=== PATIENT | male | born 1950 | race Caucasian/White ===

== ENCOUNTER 2021-05-16 20:07 | Emergency (ER) | payer MEDICARE, OTHER ==
--- NOTE | 2021-05-16 21:28 | EDM.PDOC ---
ED HPI GENERAL MEDICAL PROBLEM - General Chief Complaint: Upper Extremity Injury/Pain Stated Complaint: FELL DOWN STEPS INJURING LEFT SIDE & HEAD Time Seen by Provider: 05/16/21 20:43 Source of Information: Reports: Patient, RN Notes Reviewed - History of Present Illness INITIAL COMMENTS - FREE TEXT/NARRATIVE: 70 yr old male fell, missed a step injuring L thumb, L knee and R shoulder. Hit top of head against something with abrasion injuries top of head. No LOC, no Sidhu at this time. No chest pain or difficulty breathing. Left Hand Pain Score (Numeric/FACES): 7 Left Knee Pain Score (Numeric/FACES): 7 Right Shoulder Pain Score (Numeric/FACES): 7 - Related Data Allergies Allergy/AdvReac Type Severity Reaction Status Date / Time No Known Allergies Allergy Verified 05/16/21 20:26 Past Medical History HEENT History: Reports: Impaired Vision Cardiovascular History: Reports: Hypertension Social & Family History - Tobacco Use Tobacco Use Status *Q: Former Tobacco User Used Tobacco, but Quit: Yes Month/Year Tobacco Last Used: 1989 Review of Systems - Review of Systems Review Of Systems: See Below Constitutional: Reports: No Symptoms Ears: Reports: No Symptoms Nose: Reports: No Symptoms Mouth/Throat: Reports: No Symptoms Respiratory: Denies: Shortness of Breath, Pleuritic Chest Pain Cardiovascular: Denies: Chest Pain GI/Abdominal: Denies: Abdominal Pain, Nausea, Vomiting Musculoskeletal: Reports: Shoulder Pain, Joint Pain (L knee, L thumb) Neurological: Denies: Dizziness, Headache, Trouble Speaking ED EXAM, GENERAL - Physical Exam Exam: See Below General Appearance: Alert, No Apparent Distress Head: Other (superfisical abrasion top of scalp) Neck: Supple Respiratory/Chest: No Respiratory Distress, Lungs Clear, Normal Breath Sounds, Chest Non-Tender Cardiovascular: Regular Rate, Rhythm GI/Abdominal: Non-Tender. No: Guarding Back Exam: No: Paraspinal Tenderness, Vertebral Tenderness Extremities: Other (Tender L thumb, L knee and R shoulder, no deformity) Course - Vital Signs Last Recorded V/S: Last Vital Signs Temp 98.5 F 05/16/21 20:22 Pulse 67 05/16/21 20:22 Resp 18 05/16/21 20:22 BP 159/83 H 05/16/21 20:22 Pulse Ox 97 05/16/21 20:22 - Orders/Labs/Meds Orders: Active Orders 24 hr Category Date Time Status Fingers Thumb Lt FA [CR] Stat Exams 05/16/21 20:50 Taken Knee Min 4V Lt [CR] Stat Exams 05/16/21 20:50 Taken Shoulder Comp Rt [CR] Stat Exams 05/16/21 20:51 Taken - Re-Assessments/Exams Free Text/Narrative Re-Assessment/Exam: 05/16/21 21:49 X rays no fx Departure - Departure Time of Disposition: 21:46 Disposition: Home, Self-Care 01 Condition: Fair Clinical Impression: Fall Qualifiers: Encounter type: initial encounter Qualified Code(s): W19.XXXA - Unspecified fall, initial encounter Thumb contusion Qualifiers: Encounter type: initial encounter Damage to nail status: without damage Laterality: left Qualified Code(s): S60.012A - Contusion of left thumb without damage to nail, initial encounter Contusion, knee Qualifiers: Encounter type: initial encounter Laterality: left Qualified Code(s): S80.02XA - Contusion of left knee, initial encounter Shoulder contusion Qualifiers: Encounter type: initial encounter Laterality: right Qualified Code(s): S40.011A - Contusion of right shoulder, initial encounter - Discharge Information Instructions: Contusion Referrals: Fletcher Espana MD [Primary Care Provider] - Forms: ED Department Discharge, ED Return to Work/School Form Additional Instructions: Rest, ice packs and elevation as needed for swelling, tylenol or ibuprofen as needed. Follow up clinic as needed if symptoms not resolving as expected. Sepsis Event Note (ED) - Evaluation Sepsis Screening Result: No Definite Risk - Focused Exam Vital Signs: Vital Signs Temp Pulse Resp BP Pulse Ox 05/16/21 20:22 98.5 F 67 18 159/83 H 97 - My Orders Last 24 Hours: My Active Orders 05/16/21 20:50 Fingers Thumb Lt FA [CR] Stat Knee Min 4V Lt [CR] Stat 05/16/21 20:51 Shoulder Comp Rt [CR] Stat - Assessment/Plan Last 24 Hours: My Active Orders 05/16/21 20:50 Fingers Thumb Lt FA [CR] Stat Knee Min 4V Lt [CR] Stat 05/16/21 20:51 Shoulder Comp Rt [CR] Stat
--- NOTE | 2021-05-17 06:47 | CR ---
Right shoulder: 3 views of the right shoulder were obtained. Comparison: No prior right shoulder study is available. Inferior spurring is seen within the acromioclavicular joint. Dystrophic calcification is noted within the superior acromioclavicular joint. Mild degenerative spurring is seen within the glenohumeral joint. No acute fracture, dislocation or other bony abnormality is appreciated. No abnormal soft tissue calcifications are seen. Impression: 1. Degenerative change as noted above. 2. Nothing acute is appreciated. Diagnostic code #2
--- NOTE | 2021-05-17 06:48 | CR ---
Left knee: 4 views of the left knee were obtained. Comparison: No previous knee study is available. Mild vascular calcification is noted. Moderate medial joint space narrowing is seen. Lateral joint space is preserved. Spurring is noted off the patella at the attachment of the quadriceps tendon and patellar ligament. No acute fracture or subluxation is seen. Impression: 1. Degenerative change as noted above. 2. Mild vascular calcification is seen. 3. No acute abnormality is appreciated. Diagnostic code #2
--- NOTE | 2021-05-17 06:50 | CR ---
Left thumb: 3 views of the left thumb were obtained. Comparison: No prior thumb or hand study is available. Mild joint space narrowing is seen within the IP joint. Osteophytes are also seen within the IP joint. Fairly severe degenerative change is also noted within the CMC joint of the thumb as well as off the distal navicular bone. No acute fracture or dislocation is seen. Impression: 1. Degenerative change within the IP joint, CMC joint and off the distal navicular bone. 2. Nothing acute is seen. Diagnostic code #2
== END 2021-05-16 21:53 | disposition home or self-care (01) ==
LOC: JD.ED 20:07
DX: S60.012A Contusion of left thumb without damage to nail, initial encounter (principal); S80.02XA Contusion of left knee, initial encounter; I10 Essential (primary) hypertension; Z87.891 Personal history of nicotine dependence; W10.9XXA Fall (on) (from) unspecified stairs and steps, initial encounter
CPT/HCPCS: 73030-26-RT; 73030-RT; 73140-26-FA; 73140-FA; 73564-26-LT; 73564-LT; 99283-25

== ENCOUNTER 2021-06-24 08:39 | Inpatient (IN) | payer MEDICARE, OTHER ==
[2021-06-24] MEDS ORDERED: Sodium Chloride 0.9% 10 ML Syringe FLUSH PRN ×2 (09:15→10:58)
--- NOTE | 2021-06-24 10:02 | EDM.PDOC ---
ED HPI GENERAL MEDICAL PROBLEM - General Chief Complaint: Respiratory Problem Stated Complaint: SOB Time Seen by Provider: 06/24/21 09:05 Source of Information: Reports: Patient, RN Notes Reviewed - History of Present Illness INITIAL COMMENTS - FREE TEXT/NARRATIVE: 71 yr old male had onset of mild dyspnea yesterday, became much worse this AM after awakening. Had mild disocomfort breathing, that is now gone. No cough, fever or chills. He had his 3 dose of covid vaccine just a few days ago. Hx of Htn. Does not smoke. No known hx of cardiac or pulmonary problems. 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 Due for PET scan in a couple of wks. - Related Data Allergies Allergy/AdvReac Type Severity Reaction Status Date / Time No Known Allergies Allergy Verified 06/24/21 08:56 Past Medical History HEENT History: Reports: Impaired Vision Cardiovascular History: Reports: Hypertension Oncologic (Cancer) History: Reports: Other (See Below) Other Oncologic History: plasmocytoma (diagnosed May 2020) Social & Family History - Tobacco Use Tobacco Use Status *Q: Never Tobacco User - Recreational Drug Use Recreational Drug Use: No ED ROS GENERAL - Review of Systems Review Of Systems: See Below Constitutional: Denies: Fever, Chills, Diaphoresis HEENT: Reports: No Symptoms Respiratory: Reports: Shortness of Breath, Pleuritic Chest Pain. Denies: Cough Cardiovascular: Reports: Chest Pain (gone) GI/Abdominal: Denies: Abdominal Pain, Nausea, Vomiting Musculoskeletal: Denies: Shoulder Pain, Arm Pain, Back Pain Skin: Reports: No Symptoms Neurological: Reports: Dizziness ED EXAM, GENERAL - Physical Exam Exam: See Below General Appearance: Alert, Mild Distress (mild dyspnea) Throat/Mouth: Normal Inspection Head: Atraumatic Neck: Supple Respiratory/Chest: Lungs Clear, Respiratory Distress (mild tachypnea). No: Rales, Rhonchi, Wheezing Cardiovascular: Regular Rate, Rhythm GI/Abdominal: Non-Tender Extremities: No: Leg Pain, Increased Warmth, Redness Neurological: Alert, Oriented, No Motor/Sensory Deficits Skin Exam: Warm, Dry, Normal Color #1 Interpretation EKG Date: 06/24/21 Rhythm: NSR P-Wave: Present QRS: Normal ST-T: Normal QT: Normal Course - Vital Signs Last Recorded V/S: Last Vital Signs Temp 97 F 06/24/21 08:51 Pulse 80 06/24/21 08:51 Resp 18 06/24/21 08:51 BP 136/93 H 06/24/21 08:51 Pulse Ox 85 L 06/24/21 08:51 - Orders/Labs/Meds Orders: Active Orders 24 hr Category Date Time Status Peripheral IV Care [RC] . DIRECTED Care 06/24/21 09:16 Active Heparin Sodium/D5W [Heparin 25,000 Units in D5W 500 ML] Med 06/24/21 12:15 Active 25,000 units in 500 ml IV TITRATE Sodium Chloride 0.9% [Normal Saline] 100 ml Med 06/24/21 11:00 Active IV ASDIRECTED Sodium Chloride 0.9% [Saline Flush] Med 06/24/21 09:15 Active 10 ml FLUSH ASDIRECTED PRN Sodium Chloride 0.9% [Saline Flush] Med 06/24/21 10:58 Active 10 ml FLUSH ONETIME PRN Peripheral IV Insertion Adult [OM.PC] Stat Oth 06/24/21 09:15 Ordered Medication Orders Sodium Chloride (Normal Saline) 100 mls @ 75 mls/hr IV ASDIRECTED AYDE Last Admin: 06/24/21 11:20 Dose: 75 mls/hr Documented by: BETO Heparin Sodium/Dextrose (Heparin 25,000 Units In D5w 500 Ml) 25,000 units in 500 mls @ 33.312 mls/hr IV TITRATE AYDE; Protocol Last Admin: 06/24/21 12:30 Dose: 18 units/kg/hr, 33.312 mls/hr Documented by: KRISTY Cosigned by: HANS Sodium Chloride (Sodium Chloride 0.9% 10 Ml Syringe) 10 ml FLUSH ASDIRECTED PRN PRN Reason: Keep Vein Open Last Admin: 06/24/21 09:48 Dose: 10 ml Documented by: KRISTY Sodium Chloride (Sodium Chloride 0.9% 10 Ml Syringe) 10 ml FLUSH ONETIME PRN PRN Reason: IV FLUSH Last Admin: 06/24/21 11:20 Dose: 10 ml Documented by: BETO Labs: Laboratory Tests 06/24/21 06/24/21 06/24/21 Range/Units 09:28 09:46 09:46 WBC 8.16 (4.23-9.07) K/mm3 RBC 4.65 (4.63-6.08) M/mm3 Hgb 14.4 (13.7-17.5) gm/dl Hct 42.4 (40.1-51.0) % MCV 91.2 (79.0-92.2) fl MCH 31.0 (25.7-32.2) pg MCHC 34.0 (32.2-35.5) g/dl RDW Std Deviation 43.2 (35.1-43.9) fL Plt Count 182 (163-337) K/mm3 MPV 9.2 L (9.4-12.3) fl Neut % (Auto) 88.1 H (34.0-67.9) % Lymph % (Auto) 6.0 L (21.8-53.1) % [place] % (Auto) 5.0 L (5.3-12.2) % Eos % (Auto) 0.4 L (0.8-7.0) Baso % (Auto) 0.4 (0.1-1.2) % Neut # (Auto) 7.19 H (1.78-5.38) K/mm3 Lymph # (Auto) 0.49 L (1.32-3.57) K/mm3 [place] # (Auto) 0.41 (0.30-0.82) K/mm3 Eos # (Auto) 0.03 L (0.04-0.54) K/mm3 Baso # (Auto) 0.03 (0.01-0.08) K/mm3 D-Dimer, Quantitative (0.19-0.50) mg/L Puncture Site ABG pH (7.35-7.45) ABG pCO2 (35.0-45.0) mmHg ABG pO2 (80.0-100.0) mmHg ABG HCO3 (22.0-26.0) meq/L ABG O2 Saturation (96.0-97.0) % ABG Base Excess (-2-2.0) Trevon Test A-a Gradient mmHg O2 Delivery Device FiO2 (21.00-100.00) % Sodium (136-145) mEq/L Potassium (3.5-5.1) mEq/L Chloride (98-107) mEq/L Carbon Dioxide (21-32) mEq/L Anion Gap (5-15) BUN (7-18) mg/dL Creatinine (0.7-1.3) mg/dL Est Cr Clr Drug Dosing mL/min Estimated GFR (MDRD) (>60) mL/min BUN/Creatinine Ratio (14-18) Glucose (70-99) mg/dL Calcium (8.5-10.1) mg/dL Total Bilirubin (0.2-1.0) mg/dL AST (15-37) U/L ALT (16-63) U/L Alkaline Phosphatase (46-116) U/L Troponin I (0.00-0.056) ng/mL C-Reactive Protein 4.0 H* (<1.0) mg/dL Total Protein (6.4-8.2) g/dl Albumin (3.4-5.0) g/dl Globulin gm/dL Albumin/Globulin Ratio (1-2) SARS-CoV-2 RNA (DESIRE) Negative (NEGATIVE) 06/24/21 06/24/21 06/24/21 Range/Units 09:46 09:46 09:46 WBC (4.23-9.07) K/mm3 RBC (4.63-6.08) M/mm3 Hgb (13.7-17.5) gm/dl Hct (40.1-51.0) % MCV (79.0-92.2) fl MCH (25.7-32.2) pg MCHC (32.2-35.5) g/dl RDW Std Deviation (35.1-43.9) fL Plt Count (163-337) K/mm3 MPV (9.4-12.3) fl Neut % (Auto) (34.0-67.9) % Lymph % (Auto) (21.8-53.1) % [place] % (Auto) (5.3-12.2) % Eos % (Auto) (0.8-7.0) Baso % (Auto) (0.1-1.2) % Neut # (Auto) (1.78-5.38) K/mm3 Lymph # (Auto) (1.32-3.57) K/mm3 [place] # (Auto) (0.30-0.82) K/mm3 Eos # (Auto) (0.04-0.54) K/mm3 Baso # (Auto) (0.01-0.08) K/mm3 D-Dimer, Quantitative 10.21 H (0.19-0.50) mg/L Puncture Site ABG pH (7.35-7.45) ABG pCO2 (35.0-45.0) mmHg ABG pO2 (80.0-100.0) mmHg ABG HCO3 (22.0-26.0) meq/L ABG O2 Saturation (96.0-97.0) % ABG Base Excess (-2-2.0) Trevon Test A-a Gradient mmHg O2 Delivery Device FiO2 (21.00-100.00) % Sodium 138 (136-145) mEq/L Potassium 4.0 (3.5-5.1) mEq/L Chloride 101 (98-107) mEq/L Carbon Dioxide 25 (21-32) mEq/L Anion Gap 16.0 H (5-15) BUN 16 (7-18) mg/dL Creatinine 0.9 (0.7-1.3) mg/dL Est Cr Clr Drug Dosing 79.98 mL/min Estimated GFR (MDRD) > 60 (>60) mL/min BUN/Creatinine Ratio 17.8 (14-18) Glucose 132 H (70-99) mg/dL Calcium 9.1 (8.5-10.1) mg/dL Total Bilirubin 0.7 (0.2-1.0) mg/dL AST 46 H (15-37) U/L ALT 69 H (16-63) U/L Alkaline Phosphatase 73 (46-116) U/L Troponin I 0.207 H* (0.00-0.056) ng/mL C-Reactive Protein (<1.0) mg/dL Total Protein 7.6 (6.4-8.2) g/dl Albumin 3.7 (3.4-5.0) g/dl Globulin 3.9 gm/dL Albumin/Globulin Ratio 1.0 (1-2) SARS-CoV-2 RNA (DESIRE) (NEGATIVE) 06/24/21 Range/Units 09:53 WBC (4.23-9.07) K/mm3 RBC (4.63-6.08) M/mm3 Hgb (13.7-17.5) gm/dl Hct (40.1-51.0) % MCV (79.0-92.2) fl MCH (25.7-32.2) pg MCHC (32.2-35.5) g/dl RDW Std Deviation (35.1-43.9) fL Plt Count (163-337) K/mm3 MPV (9.4-12.3) fl Neut % (Auto) (34.0-67.9) % Lymph % (Auto) (21.8-53.1) % [place] % (Auto) (5.3-12.2) % Eos % (Auto) (0.8-7.0) Baso % (Auto) (0.1-1.2) % Neut # (Auto) (1.78-5.38) K/mm3 Lymph # (Auto) (1.32-3.57) K/mm3 [place] # (Auto) (0.30-0.82) K/mm3 Eos # (Auto) (0.04-0.54) K/mm3 Baso # (Auto) (0.01-0.08) K/mm3 D-Dimer, Quantitative (0.19-0.50) mg/L Puncture Site Lt radial ABG pH 7.42 (7.35-7.45) ABG pCO2 35.3 (35.0-45.0) mmHg ABG pO2 64.0 L (80.0-100.0) mmHg ABG HCO3 22.6 (22.0-26.0) meq/L ABG O2 Saturation 92.6 L (96.0-97.0) % ABG Base Excess -0.8 (-2-2.0) Trevon Test Positive A-a Gradient 41 mmHg O2 Delivery Device Room air FiO2 21.00 (21.00-100.00) % Sodium (136-145) mEq/L Potassium (3.5-5.1) mEq/L Chloride (98-107) mEq/L Carbon Dioxide (21-32) mEq/L Anion Gap (5-15) BUN (7-18) mg/dL Creatinine (0.7-1.3) mg/dL Est Cr Clr Drug Dosing mL/min Estimated GFR (MDRD) (>60) mL/min BUN/Creatinine Ratio (14-18) Glucose (70-99) mg/dL Calcium (8.5-10.1) mg/dL Total Bilirubin (0.2-1.0) mg/dL AST (15-37) U/L ALT (16-63) U/L Alkaline Phosphatase (46-116) U/L Troponin I (0.00-0.056) ng/mL C-Reactive Protein (<1.0) mg/dL Total Protein (6.4-8.2) g/dl Albumin (3.4-5.0) g/dl Globulin gm/dL Albumin/Globulin Ratio (1-2) SARS-CoV-2 RNA (DESIRE) (NEGATIVE) Meds: Medications Generic Name Dose Route Start Last Admin Trade Name Avni PRN Reason Stop Dose Admin Sodium Chloride 100 mls @ 75 mls/hr 06/24/21 11:00 06/24/21 11:20 Normal Saline IV 75 mls/hr ASDIRECTED AYDE Administration Heparin Sodium/Dextrose 25,000 units in 500 mls @ 33.312 mls/hr 06/24/21 12:15 06/24/21 12:30 Heparin 25,000 Units In D5w 500 Ml IV 18 units/kg/hr TITRATE AYDE 33.312 mls/hr Administration Protocol 18 UNITS/KG/HR Sodium Chloride 10 ml 06/24/21 09:15 06/24/21 09:48 Sodium Chloride 0.9% 10 Ml Syringe FLUSH 10 ml ASDIRECTED PRN Administration Keep Vein Open Sodium Chloride 10 ml 06/24/21 10:58 06/24/21 11:20 Sodium Chloride 0.9% 10 Ml Syringe FLUSH 10 ml ONETIME PRN Administration IV FLUSH Discontinued Medications Generic Name Dose Route Start Last Admin Trade Name Avni PRN Reason Stop Dose Admin Heparin Sodium (Porcine) 7,000 units 06/24/21 12:14 06/24/21 12:30 Heparin Sodium 5,000 Units/Ml Vial IVPUSH 06/24/21 12:15 7,000 units .BOLUS ONE Administration Iopamidol 100 ml 06/24/21 10:58 06/24/21 11:19 Iopamidol 755 Mg/Ml 100 Ml Bottle IVPUSH 06/24/21 10:59 100 ml ONETIME ONE Administration - Re-Assessments/Exams Free Text/Narrative Re-Assessment/Exam: 06/24/21 12:25. D Dimer 10.6, have ordered CTPA. CTPA has come back show filling defects distal right and left main pul arteries. addiional segmental and subsegmental bilat defects, see Radiology report for details. There is enlargement of the R ventricle, compression of the L ventricle indicating elevated R heart pressures per Radiology report. Have bolused with 7,000 units heparin, heparin bolus running at 5,000 units per hr. Have discussed with our local Hospitalist who does recomend transfer, pt may benefit from IR. His Oncologist is Dr Seals, [facility] so will try [facility] first. 06/24/21 12:50. Trop 0.21. Other labs relatively OK. 06/24/21 14:30 Have discussed with IR specialist, Dr Garcia immigration guard for [facility]. He has reviewed the CTPA. Because his vitals have been stable and he clinically in not in distress so far he is currently classified as "submassive PE". He states treatment is what we are doing. He agrees it is OK to transfer, if he becomes unstable at least he is where IR is more readily available. One call nurse states she will have a bed, will call us back when she gets a room and Hospitalist available to talk to me about definitive transfer. Vitals have remained stable, breathing comfortably, on continued heparin drip. 06/24/21 16:30. [facility] nurse has called back. Her Hospitalist immigration guard, Dr Brothers has refused transfer. He states it is a "lateral transfer", treatment is the heparin drip that we are doing here and can do here at this time. Dr Garcia did state that the majority of patients with his current condition and findings do well and is OK for us to keep him here, transfer if he does become unstable. I have checked with [facility] and they are on diversion for admits from other hospitals at this time. I have discussed this with Dr Nova, our Hospitalist on duty. He is not comfortable admitting here because it is a 2 hr transfer if/when needed but with the current bed situation in the state, extreme difficulty of finding a bed at a higher level of care anywhere nearby he does accept patient for admission. Departure - Departure Time of Disposition: 09:59 Disposition: Home, Self-Care 01 Condition: Serious Clinical Impression: Pulmonary embolism Qualifiers: Pulmonary embolism type: unspecified Chronicity: acute Acute cor pulmonale presence: with acute cor pulmonale Qualified Code(s): I26.09 - Other pulmonary embolism with acute cor pulmonale - Discharge Information Instructions: Ankle Pain Referrals: Fletcher Espana MD [Primary Care Provider] - Forms: ED Department Discharge Sepsis Event Note (ED) - Evaluation Sepsis Screening Result: No Definite Risk - Focused Exam Vital Signs: Vital Signs Temp Pulse Resp BP Pulse Ox 06/24/21 08:51 97 F 80 18 136/93 H 85 L ED Communication - Discussed Case With (1) Discussed Case With (1): Admitting Provider (Dr Nova, decision to admit at about 16:40) - My Orders Last 24 Hours: My Active Orders 06/24/21 09:15 Sodium Chloride 0.9% [Saline Flush] 10 ml FLUSH ASDIRECTED PRN Peripheral IV Insertion Adult [OM.PC] Stat 06/24/21 09:16 Peripheral IV Care [RC] . DIRECTED 06/24/21 10:58 Sodium Chloride 0.9% [Saline Flush] 10 ml FLUSH ONETIME PRN 06/24/21 11:00 Sodium Chloride 0.9% [Normal Saline] 100 ml IV ASDIRECTED 06/24/21 12:15 Heparin Sodium/D5W [Heparin 25,000 Units in D5W 500 ML] 25,000 units in 500 ml IV TITRATE - Assessment/Plan Last 24 Hours: My Active Orders 06/24/21 09:15 Sodium Chloride 0.9% [Saline Flush] 10 ml FLUSH ASDIRECTED PRN Peripheral IV Insertion Adult [OM.PC] Stat 06/24/21 09:16 Peripheral IV Care [RC] . DIRECTED 06/24/21 10:58 Sodium Chloride 0.9% [Saline Flush] 10 ml FLUSH ONETIME PRN 06/24/21 11:00 Sodium Chloride 0.9% [Normal Saline] 100 ml IV ASDIRECTED 06/24/21 12:15 Heparin Sodium/D5W [Heparin 25,000 Units in D5W 500 ML] 25,000 units in 500 ml IV TITRATE
--- NOTE | 2021-06-24 10:14 | CR ---
Chest: Portable view of the chest was obtained. Comparison: No prior chest imaging is available. Heart size and mediastinum are within normal limits. Lungs are clear with no acute parenchymal change. Old healed rib fractures are seen anteriorly within the right chest. Degenerative endplate spurring is seen within the spine. Impression: 1. Findings which are chronic as described above. 2. Nothing acute is seen on portable chest x-ray. Diagnostic code #2
[2021-06-24] MEDS ORDERED: Iopamidol 755 Mg/ML 100 ML Bottle IVPUSH ONE (10:58)
[2021-06-24] MEDS ORDERED: Sodium Chloride 0.9% 100 ML IV SCH (11:00)
--- NOTE | 2021-06-24 11:41 | CT ---
CT chest Technique: Multiple axial sections through the chest were obtained. Intravenous contrast was utilized. Study has been performed as a pulmonary angiogram protocol. Comparison: No prior chest CT is available, prior chest x-ray performed earlier on the same day (9:25 AM). Findings: Filling defects are seen within the distal right and left main pulmonary arteries. This is compatible with pulmonary embolism. Additional pulmonary emboli extend into the segmental branches of the lingula and left lower lobe as well as into the right middle lobe and right lower lobe. Additional pulmonary emboli are seen within the subsegmental branches. Mild pulmonary emboli are seen within the segmental branches within the left upper lung. Thoracic aorta shows atherosclerotic change without aneurysm. No mediastinal adenopathy is seen. No axillary adenopathy is noted. No pericardial thickening is seen. Partially visualized atherosclerotic change is seen within the coronary arteries. Visualized upper abdominal structures show nothing acute. Lung window settings were reviewed. No acute parenchymal change is seen within either lung. Elevated right heart pressures shown by compression of the left ventricle with enlargement of the right ventricle and bowing of the intervertebral septum into the left heart. Bone window settings were reviewed which show scattered disc space narrowing and endplate spurring within the spine. No acute osseous abnormality is appreciated. Impression: 1. Severe pulmonary emboli as described above. This causes elevated right heart pressures with decreased size of the left ventricle and bowing of the intervertebral septum into the left heart. 2. Other findings which are believed to be incidental as noted above. Diagnostic code #5
[2021-06-24] MEDS ORDERED: Heparin Sodium 5,000 Units/ML Vial IVPUSH ONE (12:14)
[2021-06-24] MEDS: Heparin Sodium/D5W 25,000 UNITS/500 ML BAG IV SCH (12:30)
[2021-06-24] MEDS ORDERED: oxyCODONE 5 MG Tab PO PRN (19:33)
[2021-06-24] MEDS ORDERED: Temazepam 15 MG Cap PO PRN (19:33)
[2021-06-24] MEDS ORDERED: Ondansetron 4 MG/2 ML SDV IV PRN (19:33)
[2021-06-24] MEDS ORDERED: Acetaminophen 325 MG Tab PO PRN (19:33)
[2021-06-24] MEDS ORDERED: Albuterol 0.083% 2.5 MG/3 ML Neb Soln NEB PRN (19:33)
[2021-06-24] MEDS ORDERED: Albuterol/Ipratropium 3.0-0.5 MG/3 ML Neb Soln NEB PRN (19:33)
--- NOTE | 2021-06-24 19:56 | PCM.HP.2 ---
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 He states that for the last 5 days he has had episodes off and on of mild dyspnea, but it became progressively worse this morning. He denies any fever or chills. Denies any cough. He did have his third dose of Pfizer vaccine 5 days ago on June 19. He did take a car ride to [place] last weekend. He has never had a blood clot before. In the emergency department he was found to have, on CTA, severe pulmonary emboli. This causes elevated right heart pressures with decreased size of the left ventricle and bowing of the intravertebral septum into the left heart. Dr. Naranjo in the emergency department consulted Dr. Donte shine at [facility] in [place] in the interventional radiology department. He felt that because his vitals were stable and clinically not in distress he would classify this as a "submassive PE" and would not surgically treat this. He recommended treatment with heparin and that they would take him because if he becomes unstable INR is more available since we are 100 miles away. Unfortunately, the hospitalist on-call, Dr. Brothers, refused transfer stating it was a "lateral transfer". Patient is followed by Dr. Seals in oncology. He states that he has been getting follow-up labs every 3 months and was sent for a PET scan next week. On arrival patient's oxygen saturations were 85. He is not on oxygen at home. - Related Data Allergies/Adverse Reactions: Allergies Allergy/AdvReac Type Severity Reaction Status Date / Time No Known Allergies Allergy Verified 06/24/21 18:14 Past Medical History HEENT History: Reports: Impaired Vision Cardiovascular History: Reports: Hypertension Respiratory History: Reports: Sleep Apnea, Other (See Below) Other Respiratory History: wears CPAP at night; current PEs. Gastrointestinal History: Reports: Fatty Liver, GERD, Other (See Below) Other Gastrointestinal History: hernia Musculoskeletal History: Reports: Other (See Below) Other Musculoskeletal History: left wrist fracture, bad bilat knees, plasmacytoma of pelvis Endocrine/Metabolic History: Reports: Other (See Below) Other Endocrine/Metabolic History: prediabetic Hematologic History: Reports: B12 Deficiency, Iron Deficiency Oncologic (Cancer) History: Reports: Other (See Below) Other Oncologic History: plasmocytoma (diagnosed May 2020) - Past Surgical History HEENT Surgical History: Reports: None Cardiovascular Surgical History: Reports: None Respiratory Surgical History: Reports: None GI Surgical History: Reports: None Musculoskeletal Surgical History: Reports: Other (See Below) Other Musculoskeletal Surgeries/Procedures:: right shoulder operation Oncologic Surgical History: Reports: None Social & Family History - Family History Family Medical History: No Pertinent Family History - Tobacco Use Tobacco Use Status *Q: Former Tobacco User Used Tobacco, but Quit: Yes Month/Year Tobacco Last Used: 1985 - Caffeine Use Caffeine Use: Reports: None - Recreational Drug Use Recreational Drug Use: No H&P Review of Systems - Review of Systems: Review Of Systems: Comprehensive ROS is negative, except as noted in HPI. Exam - Exam Exam: See Below - Vital Signs Vital Signs: Last Vital Signs Temp 98.2 F 06/24/21 18:12 Pulse 80 06/24/21 18:12 Resp 20 06/24/21 18:12 BP 128/78 06/24/21 18:12 Pulse Ox 98 06/24/21 18:12 Weight: 202 lb 6.4 oz - Exam Quality Assessment: Supplemental Oxygen General: Alert, Oriented, Severe Distress HEENT: Mucosa Moist & [place] Neck: Supple, Trachea Midline, 2 Lungs: Clear to Auscultation. No: Normal Respiratory Effort (Increased respiratory rate) Cardiovascular: Regular Rate, Regular Rhythm GI/Abdominal Exam: Normal Bowel Sounds, Soft, Non-Tender, No Organomegaly, No Distention, No Abnormal Bruit, No Mass Extremities: Normal Inspection, Normal Range of Motion, Non-Tender, Normal Capillary Refill, Pedal Edema (Bilateral 1+ pedal edema which is chronic) Skin: Warm, Dry, Intact, Other (Lower extremity chronic stasis dermatitis) Neuro Extensive - Mental Status: Alert, Oriented x3, Normal Mood/Affect, Normal Cognition, Memory Intact Psychiatric: Alert, Normal Affect, Normal Mood - Patient Data Lab Results Last 24 hrs: Laboratory Results - last 24 hr 06/24/21 06/24/21 06/24/21 Range/Units 09:28 09:46 09:46 WBC 8.16 (4.23-9.07) K/mm3 RBC 4.65 (4.63-6.08) M/mm3 Hgb 14.4 (13.7-17.5) gm/dl Hct 42.4 (40.1-51.0) % MCV 91.2 (79.0-92.2) fl MCH 31.0 (25.7-32.2) pg MCHC 34.0 (32.2-35.5) g/dl RDW Std Deviation 43.2 (35.1-43.9) fL Plt Count 182 (163-337) K/mm3 MPV 9.2 L (9.4-12.3) fl Neut % (Auto) 88.1 H (34.0-67.9) % Lymph % (Auto) 6.0 L (21.8-53.1) % Anson % (Auto) 5.0 L (5.3-12.2) % Eos % (Auto) 0.4 L (0.8-7.0) Baso % (Auto) 0.4 (0.1-1.2) % Neut # (Auto) 7.19 H (1.78-5.38) K/mm3 Lymph # (Auto) 0.49 L (1.32-3.57) K/mm3 Anson # (Auto) 0.41 (0.30-0.82) K/mm3 Eos # (Auto) 0.03 L (0.04-0.54) K/mm3 Baso # (Auto) 0.03 (0.01-0.08) K/mm3 APTT (21.7-31.4) SECONDS D-Dimer, Quantitative (0.19-0.50) mg/L Puncture Site ABG pH (7.35-7.45) ABG pCO2 (35.0-45.0) mmHg ABG pO2 (80.0-100.0) mmHg ABG HCO3 (22.0-26.0) meq/L ABG O2 Saturation (96.0-97.0) % ABG Base Excess (-2-2.0) Trevon Test A-a Gradient mmHg O2 Delivery Device FiO2 (21.00-100.00) % Sodium (136-145) mEq/L Potassium (3.5-5.1) mEq/L Chloride (98-107) mEq/L Carbon Dioxide (21-32) mEq/L Anion Gap (5-15) BUN (7-18) mg/dL Creatinine (0.7-1.3) mg/dL Est Cr Clr Drug Dosing mL/min Estimated GFR (MDRD) (>60) mL/min BUN/Creatinine Ratio (14-18) Glucose (70-99) mg/dL Calcium (8.5-10.1) mg/dL Total Bilirubin (0.2-1.0) mg/dL AST (15-37) U/L ALT (16-63) U/L Alkaline Phosphatase (46-116) U/L Troponin I (0.00-0.056) ng/mL C-Reactive Protein 4.0 H* (<1.0) mg/dL Total Protein (6.4-8.2) g/dl Albumin (3.4-5.0) g/dl Globulin gm/dL Albumin/Globulin Ratio (1-2) SARS-CoV-2 RNA (DESIRE) Negative (NEGATIVE) 06/24/21 06/24/21 06/24/21 Range/Units 09:46 09:46 09:46 WBC (4.23-9.07) K/mm3 RBC (4.63-6.08) M/mm3 Hgb (13.7-17.5) gm/dl Hct (40.1-51.0) % MCV (79.0-92.2) fl MCH (25.7-32.2) pg MCHC (32.2-35.5) g/dl RDW Std Deviation (35.1-43.9) fL Plt Count (163-337) K/mm3 MPV (9.4-12.3) fl Neut % (Auto) (34.0-67.9) % Lymph % (Auto) (21.8-53.1) % Anson % (Auto) (5.3-12.2) % Eos % (Auto) (0.8-7.0) Baso % (Auto) (0.1-1.2) % Neut # (Auto) (1.78-5.38) K/mm3 Lymph # (Auto) (1.32-3.57) K/mm3 Anson # (Auto) (0.30-0.82) K/mm3 Eos # (Auto) (0.04-0.54) K/mm3 Baso # (Auto) (0.01-0.08) K/mm3 APTT (21.7-31.4) SECONDS D-Dimer, Quantitative 10.21 H (0.19-0.50) mg/L Puncture Site ABG pH (7.35-7.45) ABG pCO2 (35.0-45.0) mmHg ABG pO2 (80.0-100.0) mmHg ABG HCO3 (22.0-26.0) meq/L ABG O2 Saturation (96.0-97.0) % ABG Base Excess (-2-2.0) Trevon Test A-a Gradient mmHg O2 Delivery Device FiO2 (21.00-100.00) % Sodium 138 (136-145) mEq/L Potassium 4.0 (3.5-5.1) mEq/L Chloride 101 (98-107) mEq/L Carbon Dioxide 25 (21-32) mEq/L Anion Gap 16.0 H (5-15) BUN 16 (7-18) mg/dL Creatinine 0.9 (0.7-1.3) mg/dL Est Cr Clr Drug Dosing 79.98 mL/min Estimated GFR (MDRD) > 60 (>60) mL/min BUN/Creatinine Ratio 17.8 (14-18) Glucose 132 H (70-99) mg/dL Calcium 9.1 (8.5-10.1) mg/dL Total Bilirubin 0.7 (0.2-1.0) mg/dL AST 46 H (15-37) U/L ALT 69 H (16-63) U/L Alkaline Phosphatase 73 (46-116) U/L Troponin I 0.207 H* (0.00-0.056) ng/mL C-Reactive Protein (<1.0) mg/dL Total Protein 7.6 (6.4-8.2) g/dl Albumin 3.7 (3.4-5.0) g/dl Globulin 3.9 gm/dL Albumin/Globulin Ratio 1.0 (1-2) SARS-CoV-2 RNA (DESIRE) (NEGATIVE) 06/24/21 06/24/21 Range/Units 09:53 18:35 WBC (4.23-9.07) K/mm3 RBC (4.63-6.08) M/mm3 Hgb (13.7-17.5) gm/dl Hct (40.1-51.0) % MCV (79.0-92.2) fl MCH (25.7-32.2) pg MCHC (32.2-35.5) g/dl RDW Std Deviation (35.1-43.9) fL Plt Count (163-337) K/mm3 MPV (9.4-12.3) fl Neut % (Auto) (34.0-67.9) % Lymph % (Auto) (21.8-53.1) % Anson % (Auto) (5.3-12.2) % Eos % (Auto) (0.8-7.0) Baso % (Auto) (0.1-1.2) % Neut # (Auto) (1.78-5.38) K/mm3 Lymph # (Auto) (1.32-3.57) K/mm3 Anson # (Auto) (0.30-0.82) K/mm3 Eos # (Auto) (0.04-0.54) K/mm3 Baso # (Auto) (0.01-0.08) K/mm3 APTT 67.9 H (21.7-31.4) SECONDS D-Dimer, Quantitative (0.19-0.50) mg/L Puncture Site Lt radial ABG pH 7.42 (7.35-7.45) ABG pCO2 35.3 (35.0-45.0) mmHg ABG pO2 64.0 L (80.0-100.0) mmHg ABG HCO3 22.6 (22.0-26.0) meq/L ABG O2 Saturation 92.6 L (96.0-97.0) % ABG Base Excess -0.8 (-2-2.0) Trevon Test Positive A-a Gradient 41 mmHg O2 Delivery Device Room air FiO2 21.00 (21.00-100.00) % Sodium (136-145) mEq/L Potassium (3.5-5.1) mEq/L Chloride (98-107) mEq/L Carbon Dioxide (21-32) mEq/L Anion Gap (5-15) BUN (7-18) mg/dL Creatinine (0.7-1.3) mg/dL Est Cr Clr Drug Dosing mL/min Estimated GFR (MDRD) (>60) mL/min BUN/Creatinine Ratio (14-18) Glucose (70-99) mg/dL Calcium (8.5-10.1) mg/dL Total Bilirubin (0.2-1.0) mg/dL AST (15-37) U/L ALT (16-63) U/L Alkaline Phosphatase (46-116) U/L Troponin I (0.00-0.056) ng/mL C-Reactive Protein (<1.0) mg/dL Total Protein (6.4-8.2) g/dl Albumin (3.4-5.0) g/dl Globulin gm/dL Albumin/Globulin Ratio (1-2) SARS-CoV-2 RNA (DESIRE) (NEGATIVE) Result Diagrams: 06/24/21 09:46 06/24/21 09:46 #1 Interpretation EKG Date: 06/24/21 Rhythm: NSR Dawson: Normal P-Wave: Present QRS: Normal ST-T: Normal QT: Normal Sepsis Event Note - Evaluation Sepsis Screening Result: No Definite Risk - Focused Exam Vital Signs: Vital Signs Temp Temp Pulse Pulse Resp BP BP 06/24/21 18:12 98.2 F 80 20 128/78 06/24/21 08:51 97 F 80 18 136/93 H Pulse Ox 06/24/21 18:12 98 06/24/21 08:51 85 L *Q Meaningful Use (ADM) - VTE Risk Assess *Q Other Thrombophilia Type: current PE - Problem List (1) Plasmacytoma SNOMED Code(s): 314046436 ICD Code: C90.30 - SOLITARY PLASMACYTOMA NOT HAVING ACHIEVED REMISSION Status: Acute Current Visit: Yes (2) Pulmonary embolism SNOMED Code(s): 28295864 ICD Code: I26.99 - OTHER PULMONARY EMBOLISM WITHOUT ACUTE COR PULMONALE Status: Acute Current Visit: Yes Qualifiers: Pulmonary embolism type: unspecified Chronicity: acute Acute cor pulmonale presence: with acute cor pulmonale Qualified Code(s): I26.09 - Other pulmonary embolism with acute cor pulmonale Problem List Initiated/Reviewed/Updated: Yes Orders Last 24hrs: Active Orders 24 hr Category Date Time Status Admission Status [Patient Status] [ADT] Routine ADT 06/24/21 17:04 Active Oxygen Therapy [RC] PRN Care 06/24/21 19:33 Ordered Peripheral IV Care [RC] . DIRECTED Care 06/24/21 09:16 Active RT Aerosol Therapy [RC] ASDIRECTED Care 06/24/21 19:36 Ordered Up ad Bailey [RC] ASDIRECTED Care 06/24/21 19:33 Ordered VTE/DVT Education [RC] PER UNIT ROUTINE Care 06/24/21 19:33 Ordered Vital Signs [RC] Q4H Care 06/24/21 19:33 Ordered Regular Diet [DIET] Diet 06/24/21 Dinner Ordered CBC WITH AUTO DIFF [HEME] AM Lab 06/25/21 05:11 Ordered COMPREHENSIVE METABOLIC PN,CMP [CHEM] AM Lab 06/25/21 05:11 Ordered MAGNESIUM [CHEM] AM Lab 06/25/21 05:11 Ordered Acetaminophen [TylenoL] Med 06/24/21 19:33 Ordered 650 mg PO Q4H PRN Albuterol [Proventil Neb Soln] Med 06/24/21 19:33 Ordered 2.5 mg NEB Q2H PRN Albuterol/Ipratropium [DuoNeb 3.0-0.5 MG/3 ML] Med 06/24/21 19:33 Ordered 3 ml NEB Q4H PRN Heparin Sodium/D5W [Heparin 25,000 Units in D5W 500 ML] Med 06/24/21 12:15 Active 25,000 units in 500 ml IV TITRATE Ondansetron [Zofran] Med 06/24/21 19:33 Ordered 4 mg IV Q6H PRN Sodium Chloride 0.9% [Normal Saline] 100 ml Med 06/24/21 11:00 Active IV ASDIRECTED Sodium Chloride 0.9% [Saline Flush] Med 06/24/21 09:15 Active 10 ml FLUSH ASDIRECTED PRN Sodium Chloride 0.9% [Saline Flush] Med 06/24/21 10:58 Active 10 ml FLUSH ONETIME PRN Temazepam [Restoril] Med 06/24/21 19:33 Ordered 15 mg PO BEDTIME PRN oxyCODONE Med 06/24/21 19:33 Ordered 5 mg PO Q4H PRN Peripheral IV Insertion Adult [OM.PC] Stat Oth 06/24/21 09:15 Ordered Resuscitation Status Routine Resus Stat 06/24/21 19:33 Ordered Medication Orders Acetaminophen (Acetaminophen 325 Mg Tab) 650 mg PO Q4H PRN PRN Reason: Pain (Mild 1-3)/fever Albuterol (Albuterol 0.083% 2.5 Mg/3 Ml Neb Soln) 2.5 mg NEB Q2H PRN PRN Reason: Shortness Of Breath/wheezing Albuterol/Ipratropium (Albuterol/Ipratropium 3.0-0.5 Mg/3 Ml Neb Soln) 3 ml NEB Q4H PRN PRN Reason: Shortness Of Breath/wheezing Sodium Chloride (Normal Saline) 100 mls @ 75 mls/hr IV ASDIRECTED AYDE Last Admin: 06/24/21 11:20 Dose: 75 mls/hr Documented by: BETO Heparin Sodium/Dextrose (Heparin 25,000 Units In D5w 500 Ml) 25,000 units in 500 mls @ 33.312 mls/hr IV TITRATE AYDE; Protocol Last Admin: 06/24/21 12:30 Dose: 18 units/kg/hr, 33.312 mls/hr Documented by: KRISTY Cosigned by: HANS Ondansetron HCl (Ondansetron 4 Mg/2 Ml Sdv) 4 mg IV Q6H PRN PRN Reason: Nausea/Vomiting Oxycodone HCl (Oxycodone 5 Mg Tab) 5 mg PO Q4H PRN PRN Reason: Pain (moderate 4-6) Sodium Chloride (Sodium Chloride 0.9% 10 Ml Syringe) 10 ml FLUSH ASDIRECTED PRN PRN Reason: Keep Vein Open Last Admin: 06/24/21 09:48 Dose: 10 ml Documented by: KRISTY Sodium Chloride (Sodium Chloride 0.9% 10 Ml Syringe) 10 ml FLUSH ONETIME PRN PRN Reason: IV FLUSH Last Admin: 06/24/21 11:20 Dose: 10 ml Documented by: BETO Temazepam (Temazepam 15 Mg Cap) 15 mg PO BEDTIME PRN PRN Reason: Sleep Assessment/Plan Comment:: 71-year-old male with history of plasmacytoma presents with shortness of breath due to severe pulmonary emboli Bilateral distal main pulmonary artery emboli with additional pulmonary emboli * Acute shortness of breath this morning * Multiple episodes of transient shortness of breath throughout the week * Third Pfizer COVID-19 vaccine 5 days ago * Relatively long car trip over last weekend * History of plasmacytoma * CT of the chest does show significant right heart strain with filling defects seen within both distal right and left main pulmonary arteries. There continues concerned that this could progress causing hemodynamic instability. Unfortunately, Dr. Eng at [facility] in [place] felt he was not at high enough risk to transfer to a tertiary care hospital where they had interventional radiology available. * Started on heparin drip in the emergency department Plasmacytoma of the pelvis * Followed by Dr. Seals * 6 weeks of radiation therapy fall * PET scan scheduled for next week Plan * Admit to medical floor * Continue heparin drip for approximate 48 hours * Convert to oral anticoagulation after 48 hours * Follow heparin protocol and PTT * Repeat CBC and CMP in the morning * FiO2 to keep SPO2 greater than 92% * VTE prophylaxis with heparin drip * CODE STATUS: Full code - Mortality Measure Prognosis:: Good
[2021-06-25] MEDS: Heparin Sodium/D5W 25,000 UNITS/500 ML BAG IV SCH ×2 (04:09→19:26)
--- NOTE | 2021-06-25 08:06 | PCM.PN ---
<Balaji Aiken - Last Filed: 06/25/21 11:12> - General Info Date of Service: 06/25/21 Admission Dx/Problem (Free Text): Admission Diagnosis/Problem Admission Diagnosis/Problem Pulmonary embolism Functional Status: Reports: Pain Controlled, Tolerating Diet, Ambulating, Urinating. Denies: New Symptoms, Incentive Spirometry - Review of Systems General: Reports: No Symptoms. Denies: Fever, Weakness, Fatigue, Malaise, Chills HEENT: Reports: No Symptoms. Denies: Headaches, Sore Throat Pulmonary: Reports: Shortness of Breath, Cough. Denies: Sputum, Wheezing Cardiovascular: Reports: Dyspnea on Exertion, Edema (chronic ). Denies: Chest Pain, Palpitations Gastrointestinal: Reports: No Symptoms. Denies: Abdominal Pain, Constipation, Diarrhea, Nausea, Vomiting Genitourinary: Reports: No Symptoms. Denies: Pain Musculoskeletal: Reports: No Symptoms Skin: Reports: No Symptoms. Denies: Cyanosis Neurological: Reports: No Symptoms. Denies: Confusion, Pre-Existing Deficit, Difficulty Walking, Gait Disturbance Psychiatric: Reports: No Symptoms - Patient Data Vitals - Most Recent: Last Vital Signs Temp 98.2 F 06/25/21 04:06 Pulse 78 06/25/21 04:06 Resp 16 06/25/21 04:06 BP 110/71 06/25/21 04:06 Pulse Ox 95 06/25/21 04:06 Weight - Most Recent: 200 lb 14.4 oz I&O - Last 24 Hours: Intake & Output 06/24/21 06/25/21 06/25/21 22:59 06:59 14:59 Intake Total 725 Output Total 700 675 Balance -700 50 Lab Results Last 24 Hours: Laboratory Results - last 24 hr 06/24/21 06/24/21 06/24/21 Range/Units 09:28 09:46 09:46 WBC 8.16 (4.23-9.07) K/mm3 RBC 4.65 (4.63-6.08) M/mm3 Hgb 14.4 (13.7-17.5) gm/dl Hct 42.4 (40.1-51.0) % MCV 91.2 (79.0-92.2) fl MCH 31.0 (25.7-32.2) pg MCHC 34.0 (32.2-35.5) g/dl RDW Std Deviation 43.2 (35.1-43.9) fL Plt Count 182 (163-337) K/mm3 MPV 9.2 L (9.4-12.3) fl Neut % (Auto) 88.1 H (34.0-67.9) % Lymph % (Auto) 6.0 L (21.8-53.1) % [place] % (Auto) 5.0 L (5.3-12.2) % Eos % (Auto) 0.4 L (0.8-7.0) Baso % (Auto) 0.4 (0.1-1.2) % Neut # (Auto) 7.19 H (1.78-5.38) K/mm3 Lymph # (Auto) 0.49 L (1.32-3.57) K/mm3 [place] # (Auto) 0.41 (0.30-0.82) K/mm3 Eos # (Auto) 0.03 L (0.04-0.54) K/mm3 Baso # (Auto) 0.03 (0.01-0.08) K/mm3 APTT (21.7-31.4) SECONDS D-Dimer, Quantitative (0.19-0.50) mg/L Puncture Site ABG pH (7.35-7.45) ABG pCO2 (35.0-45.0) mmHg ABG pO2 (80.0-100.0) mmHg ABG HCO3 (22.0-26.0) meq/L ABG O2 Saturation (96.0-97.0) % ABG Base Excess (-2-2.0) Trevon Test A-a Gradient mmHg O2 Delivery Device FiO2 (21.00-100.00) % Sodium (136-145) mEq/L Potassium (3.5-5.1) mEq/L Chloride (98-107) mEq/L Carbon Dioxide (21-32) mEq/L Anion Gap (5-15) BUN (7-18) mg/dL Creatinine (0.7-1.3) mg/dL Est Cr Clr Drug Dosing mL/min Estimated GFR (MDRD) (>60) mL/min BUN/Creatinine Ratio (14-18) Glucose (70-99) mg/dL Calcium (8.5-10.1) mg/dL Total Bilirubin (0.2-1.0) mg/dL AST (15-37) U/L ALT (16-63) U/L Alkaline Phosphatase (46-116) U/L Troponin I (0.00-0.056) ng/mL C-Reactive Protein 4.0 H* (<1.0) mg/dL Total Protein (6.4-8.2) g/dl Albumin (3.4-5.0) g/dl Globulin gm/dL Albumin/Globulin Ratio (1-2) SARS-CoV-2 RNA (DESIRE) Negative (NEGATIVE) 06/24/21 06/24/21 06/24/21 Range/Units 09:46 09:46 09:46 WBC (4.23-9.07) K/mm3 RBC (4.63-6.08) M/mm3 Hgb (13.7-17.5) gm/dl Hct (40.1-51.0) % MCV (79.0-92.2) fl MCH (25.7-32.2) pg MCHC (32.2-35.5) g/dl RDW Std Deviation (35.1-43.9) fL Plt Count (163-337) K/mm3 MPV (9.4-12.3) fl Neut % (Auto) (34.0-67.9) % Lymph % (Auto) (21.8-53.1) % [place] % (Auto) (5.3-12.2) % Eos % (Auto) (0.8-7.0) Baso % (Auto) (0.1-1.2) % Neut # (Auto) (1.78-5.38) K/mm3 Lymph # (Auto) (1.32-3.57) K/mm3 [place] # (Auto) (0.30-0.82) K/mm3 Eos # (Auto) (0.04-0.54) K/mm3 Baso # (Auto) (0.01-0.08) K/mm3 APTT (21.7-31.4) SECONDS D-Dimer, Quantitative 10.21 H (0.19-0.50) mg/L Puncture Site ABG pH (7.35-7.45) ABG pCO2 (35.0-45.0) mmHg ABG pO2 (80.0-100.0) mmHg ABG HCO3 (22.0-26.0) meq/L ABG O2 Saturation (96.0-97.0) % ABG Base Excess (-2-2.0) Trevon Test A-a Gradient mmHg O2 Delivery Device FiO2 (21.00-100.00) % Sodium 138 (136-145) mEq/L Potassium 4.0 (3.5-5.1) mEq/L Chloride 101 (98-107) mEq/L Carbon Dioxide 25 (21-32) mEq/L Anion Gap 16.0 H (5-15) BUN 16 (7-18) mg/dL Creatinine 0.9 (0.7-1.3) mg/dL Est Cr Clr Drug Dosing 79.98 mL/min Estimated GFR (MDRD) > 60 (>60) mL/min BUN/Creatinine Ratio 17.8 (14-18) Glucose 132 H (70-99) mg/dL Calcium 9.1 (8.5-10.1) mg/dL Total Bilirubin 0.7 (0.2-1.0) mg/dL AST 46 H (15-37) U/L ALT 69 H (16-63) U/L Alkaline Phosphatase 73 (46-116) U/L Troponin I 0.207 H* (0.00-0.056) ng/mL C-Reactive Protein (<1.0) mg/dL Total Protein 7.6 (6.4-8.2) g/dl Albumin 3.7 (3.4-5.0) g/dl Globulin 3.9 gm/dL Albumin/Globulin Ratio 1.0 (1-2) SARS-CoV-2 RNA (DESIRE) (NEGATIVE) 06/24/21 06/24/21 06/25/21 Range/Units 09:53 18:35 01:00 WBC (4.23-9.07) K/mm3 RBC (4.63-6.08) M/mm3 Hgb (13.7-17.5) gm/dl Hct (40.1-51.0) % MCV (79.0-92.2) fl MCH (25.7-32.2) pg MCHC (32.2-35.5) g/dl RDW Std Deviation (35.1-43.9) fL Plt Count (163-337) K/mm3 MPV (9.4-12.3) fl Neut % (Auto) (34.0-67.9) % Lymph % (Auto) (21.8-53.1) % [place] % (Auto) (5.3-12.2) % Eos % (Auto) (0.8-7.0) Baso % (Auto) (0.1-1.2) % Neut # (Auto) (1.78-5.38) K/mm3 Lymph # (Auto) (1.32-3.57) K/mm3 [place] # (Auto) (0.30-0.82) K/mm3 Eos # (Auto) (0.04-0.54) K/mm3 Baso # (Auto) (0.01-0.08) K/mm3 APTT 67.9 H 64.4 H (21.7-31.4) SECONDS D-Dimer, Quantitative (0.19-0.50) mg/L Puncture Site Lt radial ABG pH 7.42 (7.35-7.45) ABG pCO2 35.3 (35.0-45.0) mmHg ABG pO2 64.0 L (80.0-100.0) mmHg ABG HCO3 22.6 (22.0-26.0) meq/L ABG O2 Saturation 92.6 L (96.0-97.0) % ABG Base Excess -0.8 (-2-2.0) Trevon Test Positive A-a Gradient 41 mmHg O2 Delivery Device Room air FiO2 21.00 (21.00-100.00) % Sodium (136-145) mEq/L Potassium (3.5-5.1) mEq/L Chloride (98-107) mEq/L Carbon Dioxide (21-32) mEq/L Anion Gap (5-15) BUN (7-18) mg/dL Creatinine (0.7-1.3) mg/dL Est Cr Clr Drug Dosing mL/min Estimated GFR (MDRD) (>60) mL/min BUN/Creatinine Ratio (14-18) Glucose (70-99) mg/dL Calcium (8.5-10.1) mg/dL Total Bilirubin (0.2-1.0) mg/dL AST (15-37) U/L ALT (16-63) U/L Alkaline Phosphatase (46-116) U/L Troponin I (0.00-0.056) ng/mL C-Reactive Protein (<1.0) mg/dL Total Protein (6.4-8.2) g/dl Albumin (3.4-5.0) g/dl Globulin gm/dL Albumin/Globulin Ratio (1-2) SARS-CoV-2 RNA (DESIRE) (NEGATIVE) Med Orders - Current: Current Medications Acetaminophen (Acetaminophen 325 Mg Tab) 650 mg PO Q4H PRN PRN Reason: Pain (Mild 1-3)/fever Albuterol (Albuterol 0.083% 2.5 Mg/3 Ml Neb Soln) 2.5 mg NEB Q2H PRN PRN Reason: Shortness Of Breath/wheezing Albuterol/Ipratropium (Albuterol/Ipratropium 3.0-0.5 Mg/3 Ml Neb Soln) 3 ml NEB Q4H PRN PRN Reason: Shortness Of Breath/wheezing Heparin Sodium/Dextrose (Heparin 25,000 Units In D5w 500 Ml) 25,000 units in 500 mls @ 33.312 mls/hr IV TITRATE AYDE; Protocol Last Admin: 06/25/21 04:09 Dose: 18 units/kg/hr, 33.312 mls/hr Documented by: Ondansetron HCl (Ondansetron 4 Mg/2 Ml Sdv) 4 mg IV Q6H PRN PRN Reason: Nausea/Vomiting Oxycodone HCl (Oxycodone 5 Mg Tab) 5 mg PO Q4H PRN PRN Reason: Pain (moderate 4-6) Sodium Chloride (Sodium Chloride 0.9% 10 Ml Syringe) 10 ml FLUSH ASDIRECTED PRN PRN Reason: Keep Vein Open Last Admin: 06/24/21 09:48 Dose: 10 ml Documented by: Sodium Chloride (Sodium Chloride 0.9% 10 Ml Syringe) 10 ml FLUSH ONETIME PRN PRN Reason: IV FLUSH Last Admin: 06/24/21 11:20 Dose: 10 ml Documented by: Temazepam (Temazepam 15 Mg Cap) 15 mg PO BEDTIME PRN PRN Reason: Sleep Discontinued Medications Heparin Sodium (Porcine) (Heparin Sodium 5,000 Units/Ml Vial) 7,000 units IVPUSH .BOLUS ONE Stop: 06/24/21 12:15 Last Admin: 06/24/21 12:30 Dose: 7,000 units Documented by: Sodium Chloride (Normal Saline) 100 mls @ 75 mls/hr IV ASDIRECTED AYDE Last Admin: 06/24/21 11:20 Dose: 75 mls/hr Documented by: Iopamidol (Iopamidol 755 Mg/Ml 100 Ml Bottle) 100 ml IVPUSH ONETIME ONE Stop: 06/24/21 10:59 Last Admin: 06/24/21 11:19 Dose: 100 ml Documented by: - Exam Quality Assessment: Supplemental Oxygen (2L), DVT Prophylaxis General: Alert, Oriented, Cooperative, No Acute Distress HEENT: Pupils Equal, Pupils Reactive, Mucous Membr. Moist/[place] Neck: Supple, Trachea Midline Lungs: Clear to Auscultation, Normal Respiratory Effort Cardiovascular: Regular Rate, Regular Rhythm GI/Abdominal Exam: Normal Bowel Sounds, Soft, Non-Tender, No Distention (Male) Exam: Deferred Back Exam: Normal Inspection, Full Range of Motion Extremities: Normal Inspection, Normal Range of Motion, Non-Tender, Normal Capillary Refill, Pedal Edema (trace - 1+), Other (Chronic venous stasis dermatitis. ) Skin: Warm, Dry, Intact Neurological: No New Focal Deficit - Patient Data Lab Results Last 24 hrs: Laboratory Results - last 24 hr 06/24/21 06/24/21 06/24/21 Range/Units 09:28 09:46 09:46 WBC 8.16 (4.23-9.07) K/mm3 RBC 4.65 (4.63-6.08) M/mm3 Hgb 14.4 (13.7-17.5) gm/dl Hct 42.4 (40.1-51.0) % MCV 91.2 (79.0-92.2) fl MCH 31.0 (25.7-32.2) pg MCHC 34.0 (32.2-35.5) g/dl RDW Std Deviation 43.2 (35.1-43.9) fL Plt Count 182 (163-337) K/mm3 MPV 9.2 L (9.4-12.3) fl Neut % (Auto) 88.1 H (34.0-67.9) % Lymph % (Auto) 6.0 L (21.8-53.1) % [place] % (Auto) 5.0 L (5.3-12.2) % Eos % (Auto) 0.4 L (0.8-7.0) Baso % (Auto) 0.4 (0.1-1.2) % Neut # (Auto) 7.19 H (1.78-5.38) K/mm3 Lymph # (Auto) 0.49 L (1.32-3.57) K/mm3 [place] # (Auto) 0.41 (0.30-0.82) K/mm3 Eos # (Auto) 0.03 L (0.04-0.54) K/mm3 Baso # (Auto) 0.03 (0.01-0.08) K/mm3 APTT (21.7-31.4) SECONDS D-Dimer, Quantitative (0.19-0.50) mg/L Puncture Site ABG pH (7.35-7.45) ABG pCO2 (35.0-45.0) mmHg ABG pO2 (80.0-100.0) mmHg ABG HCO3 (22.0-26.0) meq/L ABG O2 Saturation (96.0-97.0) % ABG Base Excess (-2-2.0) Trevon Test A-a Gradient mmHg O2 Delivery Device FiO2 (21.00-100.00) % Sodium (136-145) mEq/L Potassium (3.5-5.1) mEq/L Chloride (98-107) mEq/L Carbon Dioxide (21-32) mEq/L Anion Gap (5-15) BUN (7-18) mg/dL Creatinine (0.7-1.3) mg/dL Est Cr Clr Drug Dosing mL/min Estimated GFR (MDRD) (>60) mL/min BUN/Creatinine Ratio (14-18) Glucose (70-99) mg/dL Calcium (8.5-10.1) mg/dL Total Bilirubin (0.2-1.0) mg/dL AST (15-37) U/L ALT (16-63) U/L Alkaline Phosphatase (46-116) U/L Troponin I (0.00-0.056) ng/mL C-Reactive Protein 4.0 H* (<1.0) mg/dL Total Protein (6.4-8.2) g/dl Albumin (3.4-5.0) g/dl Globulin gm/dL Albumin/Globulin Ratio (1-2) SARS-CoV-2 RNA (DESIRE) Negative (NEGATIVE) 06/24/21 06/24/21 06/24/21 Range/Units 09:46 09:46 09:46 WBC (4.23-9.07) K/mm3 RBC (4.63-6.08) M/mm3 Hgb (13.7-17.5) gm/dl Hct (40.1-51.0) % MCV (79.0-92.2) fl MCH (25.7-32.2) pg MCHC (32.2-35.5) g/dl RDW Std Deviation (35.1-43.9) fL Plt Count (163-337) K/mm3 MPV (9.4-12.3) fl Neut % (Auto) (34.0-67.9) % Lymph % (Auto) (21.8-53.1) % [place] % (Auto) (5.3-12.2) % Eos % (Auto) (0.8-7.0) Baso % (Auto) (0.1-1.2) % Neut # (Auto) (1.78-5.38) K/mm3 Lymph # (Auto) (1.32-3.57) K/mm3 [place] # (Auto) (0.30-0.82) K/mm3 Eos # (Auto) (0.04-0.54) K/mm3 Baso # (Auto) (0.01-0.08) K/mm3 APTT (21.7-31.4) SECONDS D-Dimer, Quantitative 10.21 H (0.19-0.50) mg/L Puncture Site ABG pH (7.35-7.45) ABG pCO2 (35.0-45.0) mmHg ABG pO2 (80.0-100.0) mmHg ABG HCO3 (22.0-26.0) meq/L ABG O2 Saturation (96.0-97.0) % ABG Base Excess (-2-2.0) Trevon Test A-a Gradient mmHg O2 Delivery Device FiO2 (21.00-100.00) % Sodium 138 (136-145) mEq/L Potassium 4.0 (3.5-5.1) mEq/L Chloride 101 (98-107) mEq/L Carbon Dioxide 25 (21-32) mEq/L Anion Gap 16.0 H (5-15) BUN 16 (7-18) mg/dL Creatinine 0.9 (0.7-1.3) mg/dL Est Cr Clr Drug Dosing 79.98 mL/min Estimated GFR (MDRD) > 60 (>60) mL/min BUN/Creatinine Ratio 17.8 (14-18) Glucose 132 H (70-99) mg/dL Calcium 9.1 (8.5-10.1) mg/dL Total Bilirubin 0.7 (0.2-1.0) mg/dL AST 46 H (15-37) U/L ALT 69 H (16-63) U/L Alkaline Phosphatase 73 (46-116) U/L Troponin I 0.207 H* (0.00-0.056) ng/mL C-Reactive Protein (<1.0) mg/dL Total Protein 7.6 (6.4-8.2) g/dl Albumin 3.7 (3.4-5.0) g/dl Globulin 3.9 gm/dL Albumin/Globulin Ratio 1.0 (1-2) SARS-CoV-2 RNA (DESIRE) (NEGATIVE) 06/24/21 06/24/21 06/25/21 Range/Units 09:53 18:35 01:00 WBC (4.23-9.07) K/mm3 RBC (4.63-6.08) M/mm3 Hgb (13.7-17.5) gm/dl Hct (40.1-51.0) % MCV (79.0-92.2) fl MCH (25.7-32.2) pg MCHC (32.2-35.5) g/dl RDW Std Deviation (35.1-43.9) fL Plt Count (163-337) K/mm3 MPV (9.4-12.3) fl Neut % (Auto) (34.0-67.9) % Lymph % (Auto) (21.8-53.1) % [place] % (Auto) (5.3-12.2) % Eos % (Auto) (0.8-7.0) Baso % (Auto) (0.1-1.2) % Neut # (Auto) (1.78-5.38) K/mm3 Lymph # (Auto) (1.32-3.57) K/mm3 [place] # (Auto) (0.30-0.82) K/mm3 Eos # (Auto) (0.04-0.54) K/mm3 Baso # (Auto) (0.01-0.08) K/mm3 APTT 67.9 H 64.4 H (21.7-31.4) SECONDS D-Dimer, Quantitative (0.19-0.50) mg/L Puncture Site Lt radial ABG pH 7.42 (7.35-7.45) ABG pCO2 35.3 (35.0-45.0) mmHg ABG pO2 64.0 L (80.0-100.0) mmHg ABG HCO3 22.6 (22.0-26.0) meq/L ABG O2 Saturation 92.6 L (96.0-97.0) % ABG Base Excess -0.8 (-2-2.0) Rtevon Test Positive A-a Gradient 41 mmHg O2 Delivery Device Room air FiO2 21.00 (21.00-100.00) % Sodium (136-145) mEq/L Potassium (3.5-5.1) mEq/L Chloride (98-107) mEq/L Carbon Dioxide (21-32) mEq/L Anion Gap (5-15) BUN (7-18) mg/dL Creatinine (0.7-1.3) mg/dL Est Cr Clr Drug Dosing mL/min Estimated GFR (MDRD) (>60) mL/min BUN/Creatinine Ratio (14-18) Glucose (70-99) mg/dL Calcium (8.5-10.1) mg/dL Total Bilirubin (0.2-1.0) mg/dL AST (15-37) U/L ALT (16-63) U/L Alkaline Phosphatase (46-116) U/L Troponin I (0.00-0.056) ng/mL C-Reactive Protein (<1.0) mg/dL Total Protein (6.4-8.2) g/dl Albumin (3.4-5.0) g/dl Globulin gm/dL Albumin/Globulin Ratio (1-2) SARS-CoV-2 RNA (DESIRE) (NEGATIVE) Result Diagrams: 06/25/21 07:25 06/25/21 07:25 Sepsis Event Note - Evaluation Sepsis Screening Result: No Definite Risk - Focused Exam Vital Signs: Vital Signs Temp Pulse Resp BP Pulse Ox 06/25/21 04:06 98.2 F 78 16 110/71 95 06/24/21 23:04 98.1 F 73 13 110/77 97 - Problem List & Annotations (1) LUDWIN (obstructive sleep apnea) SNOMED Code(s): 59826484 Code(s): G47.33 - OBSTRUCTIVE SLEEP APNEA (ADULT) (PEDIATRIC) Status: Chronic Priority: Low Current Visit: No (2) Plasmacytoma SNOMED Code(s): 754433664 Code(s): C90.30 - SOLITARY PLASMACYTOMA NOT HAVING ACHIEVED REMISSION Status: Chronic Priority: High Current Visit: Yes Qualifiers: Plasmacytoma type: unspecified type Plasmacytoma active/remission status: not having achieved remission Qualified Code(s): C90.30 - Solitary plasmacytoma not having achieved remission (3) Pulmonary embolism SNOMED Code(s): 95518063 Code(s): I26.99 - OTHER PULMONARY EMBOLISM WITHOUT ACUTE COR PULMONALE Status: Acute Priority: High Current Visit: Yes Qualifiers: Pulmonary embolism type: unspecified Chronicity: acute Acute cor pulmonale presence: with acute cor pulmonale Qualified Code(s): I26.09 - Other pulmonary embolism with acute cor pulmonale - Problem List Review Problem List Initiated/Reviewed/Updated: Yes - Plan Plan:: 71-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 There con tinues concerned that this could progress causing hemodynamic instability. Unfortunately, Dr. Eng at [facility] in [place] felt he was not at high enough risk to transfer to a tertiary care hospital where they had interventional radiology available. * Started on heparin drip in the emergency department Plasmacytoma of the pelvis * Followed by Dr. Seals * 6 weeks of radiation therapy fall * PET scan scheduled for next week LUDWIN * On home CPAP * Family is bringing CPAP in 06/25/2021 This is a 71-year-old male admitted to the floor after being found to have severe pulmonary emboli with right heart strain. He was started on a heparin drip in the emergency room and this will continue for 48 hours. At that time we will likely transition to a DOAC. Troponin remains elevated but stable. We will recheck this today at 1330 and again in the morning. Overall he states he feels pretty good. He is still requiring 2 L of oxygen. Denies any chest pain. Family is going to bring in the patient's home CPAP and we will continue that when it arrives. Likely discharge in 1 to 2 days pending stability. Echocardiogram was ordered today and is also pending. Plan * Admit to medical floor * Continue heparin drip for approximate 48 hours * Convert to oral anticoagulation after 48 hours * Follow heparin protocol and PTT * Repeat CBC and CMP in the morning * FiO2 to keep SPO2 greater than 92% VTE prophylaxis with heparin drip CODE STATUS: Full code PCP: Dr. Espana <Reinaldo Boyd Jr - Last Filed: 06/25/21 19:08> - Patient Data Vitals - Most Recent: Last Vital Signs Temp 97.5 F 06/25/21 15:29 Pulse 79 06/25/21 15:29 Resp 17 06/25/21 15:29 BP 104/71 06/25/21 15:29 Pulse Ox 95 06/25/21 15:29 I&O - Last 24 Hours: Intake & Output 06/25/21 06/25/21 06/25/21 06:59 14:59 22:59 Intake Total 725 1030 Output Total 675 1250 Balance 50 -220 Lab Results Last 24 Hours: Laboratory Results - last 24 hr 06/24/21 06/25/21 06/25/21 Range/Units 18:35 01:00 07:25 WBC 7.24 (4.23-9.07) K/mm3 RBC 4.57 L (4.63-6.08) M/mm3 Hgb 14.0 (13.7-17.5) gm/dl Hct 42.2 (40.1-51.0) % MCV 92.3 H (79.0-92.2) fl MCH 30.6 (25.7-32.2) pg MCHC 33.2 (32.2-35.5) g/dl RDW Std Deviation 44.7 H (35.1-43.9) fL Plt Count 191 (163-337) K/mm3 MPV 9.0 L (9.4-12.3) fl Neut % (Auto) 74.0 H (34.0-67.9) % Lymph % (Auto) 16.4 L (21.8-53.1) % [place] % (Auto) 7.9 (5.3-12.2) % Eos % (Auto) 0.8 (0.8-7.0) Baso % (Auto) 0.6 (0.1-1.2) % Neut # (Auto) 5.36 (1.78-5.38) K/mm3 Lymph # (Auto) 1.19 L (1.32-3.57) K/mm3 [place] # (Auto) 0.57 (0.30-0.82) K/mm3 Eos # (Auto) 0.06 (0.04-0.54) K/mm3 Baso # (Auto) 0.04 (0.01-0.08) K/mm3 APTT 67.9 H 64.4 H (21.7-31.4) SECONDS Sodium (136-145) mEq/L Potassium (3.5-5.1) mEq/L Chloride (98-107) mEq/L Carbon Dioxide (21-32) mEq/L Anion Gap (5-15) BUN (7-18) mg/dL Creatinine (0.7-1.3) mg/dL Est Cr Clr Drug Dosing mL/min Estimated GFR (MDRD) (>60) mL/min BUN/Creatinine Ratio (14-18) Glucose (70-99) mg/dL Calcium (8.5-10.1) mg/dL Magnesium (1.8-2.4) mg/dL Total Bilirubin (0.2-1.0) mg/dL AST (15-37) U/L ALT (16-63) U/L Alkaline Phosphatase (46-116) U/L Troponin I (0.00-0.056) ng/mL Total Protein (6.4-8.2) g/dl Albumin (3.4-5.0) g/dl Globulin gm/dL Albumin/Globulin Ratio (1-2) 06/25/21 06/25/21 06/25/21 Range/Units 07:25 07:25 07:25 WBC (4.23-9.07) K/mm3 RBC (4.63-6.08) M/mm3 Hgb (13.7-17.5) gm/dl Hct (40.1-51.0) % MCV (79.0-92.2) fl MCH (25.7-32.2) pg MCHC (32.2-35.5) g/dl RDW Std Deviation (35.1-43.9) fL Plt Count (163-337) K/mm3 MPV (9.4-12.3) fl Neut % (Auto) (34.0-67.9) % Lymph % (Auto) (21.8-53.1) % [place] % (Auto) (5.3-12.2) % Eos % (Auto) (0.8-7.0) Baso % (Auto) (0.1-1.2) % Neut # (Auto) (1.78-5.38) K/mm3 Lymph # (Auto) (1.32-3.57) K/mm3 [place] # (Auto) (0.30-0.82) K/mm3 Eos # (Auto) (0.04-0.54) K/mm3 Baso # (Auto) (0.01-0.08) K/mm3 APTT 69.8 H (21.7-31.4) SECONDS Sodium 142 (136-145) mEq/L Potassium 4.0 (3.5-5.1) mEq/L Chloride 103 (98-107) mEq/L Carbon Dioxide 26 (21-32) mEq/L Anion Gap 17.0 H (5-15) BUN 13 (7-18) mg/dL Creatinine 0.9 (0.7-1.3) mg/dL Est Cr Clr Drug Dosing 79.98 mL/min Estimated GFR (MDRD) > 60 (>60) mL/min BUN/Creatinine Ratio 14.4 (14-18) Glucose 124 H (70-99) mg/dL Calcium 8.8 (8.5-10.1) mg/dL Magnesium 2.2 (1.8-2.4) mg/dL Total Bilirubin 0.5 (0.2-1.0) mg/dL AST 40 H (15-37) U/L ALT 50 (16-63) U/L Alkaline Phosphatase 64 (46-116) U/L Troponin I 0.225 H* (0.00-0.056) ng/mL Total Protein 6.7 (6.4-8.2) g/dl Albumin 3.4 (3.4-5.0) g/dl Globulin 3.3 gm/dL Albumin/Globulin Ratio 1.0 (1-2) 06/25/21 Range/Units 14:04 WBC (4.23-9.07) K/mm3 RBC (4.63-6.08) M/mm3 Hgb (13.7-17.5) gm/dl Hct (40.1-51.0) % MCV (79.0-92.2) fl MCH (25.7-32.2) pg MCHC (32.2-35.5) g/dl RDW Std Deviation (35.1-43.9) fL Plt Count (163-337) K/mm3 MPV (9.4-12.3) fl Neut % (Auto) (34.0-67.9) % Lymph % (Auto) (21.8-53.1) % [place] % (Auto) (5.3-12.2) % Eos % (Auto) (0.8-7.0) Baso % (Auto) (0.1-1.2) % Neut # (Auto) (1.78-5.38) K/mm3 Lymph # (Auto) (1.32-3.57) K/mm3 [place] # (Auto) (0.30-0.82) K/mm3 Eos # (Auto) (0.04-0.54) K/mm3 Baso # (Auto) (0.01-0.08) K/mm3 APTT (21.7-31.4) SECONDS Sodium (136-145) mEq/L Potassium (3.5-5.1) mEq/L Chloride (98-107) mEq/L Carbon Dioxide (21-32) mEq/L Anion Gap (5-15) BUN (7-18) mg/dL Creatinine (0.7-1.3) mg/dL Est Cr Clr Drug Dosing mL/min Estimated GFR (MDRD) (>60) mL/min BUN/Creatinine Ratio (14-18) Glucose (70-99) mg/dL Calcium (8.5-10.1) mg/dL Magnesium (1.8-2.4) mg/dL Total Bilirubin (0.2-1.0) mg/dL AST (15-37) U/L ALT (16-63) U/L Alkaline Phosphatase (46-116) U/L Troponin I 0.199 H* (0.00-0.056) ng/mL Total Protein (6.4-8.2) g/dl Albumin (3.4-5.0) g/dl Globulin gm/dL Albumin/Globulin Ratio (1-2) Med Orders - Current: Current Medications Acetaminophen (Acetaminophen 325 Mg Tab) 650 mg PO Q4H PRN PRN Reason: Pain (Mild 1-3)/fever Albuterol (Albuterol 0.083% 2.5 Mg/3 Ml Neb Soln) 2.5 mg NEB Q2H PRN PRN Reason: Shortness Of Breath/wheezing Albuterol/Ipratropium (Albuterol/Ipratropium 3.0-0.5 Mg/3 Ml Neb Soln) 3 ml NEB Q4H PRN PRN Reason: Shortness Of Breath/wheezing Famotidine (Famotidine 10 Mg Tab) 10 mg PO DAILY AYDE Last Admin: 06/25/21 10:34 Dose: 10 mg Documented by: Heparin Sodium/Dextrose (Heparin 25,000 Units In D5w 500 Ml) 25,000 units in 500 mls @ 33.312 mls/hr IV TITRATE AYDE; Protocol Last Admin: 06/25/21 04:09 Dose: 18 units/kg/hr, 33.312 mls/hr Documented by: Ondansetron HCl (Ondansetron 4 Mg/2 Ml Sdv) 4 mg IV Q6H PRN PRN Reason: Nausea/Vomiting Oxycodone HCl (Oxycodone 5 Mg Tab) 5 mg PO Q4H PRN PRN Reason: Pain (moderate 4-6) Sodium Chloride (Sodium Chloride 0.9% 10 Ml Syringe) 10 ml FLUSH ASDIRECTED PRN PRN Reason: Keep Vein Open Last Admin: 06/24/21 09:48 Dose: 10 ml Documented by: Sodium Chloride (Sodium Chloride 0.9% 10 Ml Syringe) 10 ml FLUSH ONETIME PRN PRN Reason: IV FLUSH Last Admin: 06/24/21 11:20 Dose: 10 ml Documented by: Temazepam (Temazepam 15 Mg Cap) 15 mg PO BEDTIME PRN PRN Reason: Sleep Discontinued Medications Heparin Sodium (Porcine) (Heparin Sodium 5,000 Units/Ml Vial) 7,000 units IVPUSH .BOLUS ONE Stop: 06/24/21 12:15 Last Admin: 06/24/21 12:30 Dose: 7,000 units Documented by: Sodium Chloride (Normal Saline) 100 mls @ 75 mls/hr IV ASDIRECTED AYDE Last Admin: 06/24/21 11:20 Dose: 75 mls/hr Documented by: Iopamidol (Iopamidol 755 Mg/Ml 100 Ml Bottle) 100 ml IVPUSH ONETIME ONE Stop: 06/24/21 10:59 Last Admin: 06/24/21 11:19 Dose: 100 ml Documented by: - Patient Data Lab Results Last 24 hrs: Laboratory Results - last 24 hr 06/24/21 06/25/21 06/25/21 Range/Units 18:35 01:00 07:25 WBC 7.24 (4.23-9.07) K/mm3 RBC 4.57 L (4.63-6.08) M/mm3 Hgb 14.0 (13.7-17.5) gm/dl Hct 42.2 (40.1-51.0) % MCV 92.3 H (79.0-92.2) fl MCH 30.6 (25.7-32.2) pg MCHC 33.2 (32.2-35.5) g/dl RDW Std Deviation 44.7 H (35.1-43.9) fL Plt Count 191 (163-337) K/mm3 MPV 9.0 L (9.4-12.3) fl Neut % (Auto) 74.0 H (34.0-67.9) % Lymph % (Auto) 16.4 L (21.8-53.1) % [place] % (Auto) 7.9 (5.3-12.2) % Eos % (Auto) 0.8 (0.8-7.0) Baso % (Auto) 0.6 (0.1-1.2) % Neut # (Auto) 5.36 (1.78-5.38) K/mm3 Lymph # (Auto) 1.19 L (1.32-3.57) K/mm3 [place] # (Auto) 0.57 (0.30-0.82) K/mm3 Eos # (Auto) 0.06 (0.04-0.54) K/mm3 Baso # (Auto) 0.04 (0.01-0.08) K/mm3 APTT 67.9 H 64.4 H (21.7-31.4) SECONDS Sodium (136-145) mEq/L Potassium (3.5-5.1) mEq/L Chloride (98-107) mEq/L Carbon Dioxide (21-32) mEq/L Anion Gap (5-15) BUN (7-18) mg/dL Creatinine (0.7-1.3) mg/dL Est Cr Clr Drug Dosing mL/min Estimated GFR (MDRD) (>60) mL/min BUN/Creatinine Ratio (14-18) Glucose (70-99) mg/dL Calcium (8.5-10.1) mg/dL Magnesium (1.8-2.4) mg/dL Total Bilirubin (0.2-1.0) mg/dL AST (15-37) U/L ALT (16-63) U/L Alkaline Phosphatase (46-116) U/L Troponin I (0.00-0.056) ng/mL Total Protein (6.4-8.2) g/dl Albumin (3.4-5.0) g/dl Globulin gm/dL Albumin/Globulin Ratio (1-2) 06/25/21 06/25/21 06/25/21 Range/Units 07:25 07:25 07:25 WBC (4.23-9.07) K/mm3 RBC (4.63-6.08) M/mm3 Hgb (13.7-17.5) gm/dl Hct (40.1-51.0) % MCV (79.0-92.2) fl MCH (25.7-32.2) pg MCHC (32.2-35.5) g/dl RDW Std Deviation (35.1-43.9) fL Plt Count (163-337) K/mm3 MPV (9.4-12.3) fl Neut % (Auto) (34.0-67.9) % Lymph % (Auto) (21.8-53.1) % [place] % (Auto) (5.3-12.2) % Eos % (Auto) (0.8-7.0) Baso % (Auto) (0.1-1.2) % Neut # (Auto) (1.78-5.38) K/mm3 Lymph # (Auto) (1.32-3.57) K/mm3 [place] # (Auto) (0.30-0.82) K/mm3 Eos # (Auto) (0.04-0.54) K/mm3 Baso # (Auto) (0.01-0.08) K/mm3 APTT 69.8 H (21.7-31.4) SECONDS Sodium 142 (136-145) mEq/L Potassium 4.0 (3.5-5.1) mEq/L Chloride 103 (98-107) mEq/L Carbon Dioxide 26 (21-32) mEq/L Anion Gap 17.0 H (5-15) BUN 13 (7-18) mg/dL Creatinine 0.9 (0.7-1.3) mg/dL Est Cr Clr Drug Dosing 79.98 mL/min Estimated GFR (MDRD) > 60 (>60) mL/min BUN/Creatinine Ratio 14.4 (14-18) Glucose 124 H (70-99) mg/dL Calcium 8.8 (8.5-10.1) mg/dL Magnesium 2.2 (1.8-2.4) mg/dL Total Bilirubin 0.5 (0.2-1.0) mg/dL AST 40 H (15-37) U/L ALT 50 (16-63) U/L Alkaline Phosphatase 64 (46-116) U/L Troponin I 0.225 H* (0.00-0.056) ng/mL Total Protein 6.7 (6.4-8.2) g/dl Albumin 3.4 (3.4-5.0) g/dl Globulin 3.3 gm/dL Albumin/Globulin Ratio 1.0 (1-2) 06/25/21 Range/Units 14:04 WBC (4.23-9.07) K/mm3 RBC (4.63-6.08) M/mm3 Hgb (13.7-17.5) gm/dl Hct (40.1-51.0) % MCV (79.0-92.2) fl MCH (25.7-32.2) pg MCHC (32.2-35.5) g/dl RDW Std Deviation (35.1-43.9) fL Plt Count (163-337) K/mm3 MPV (9.4-12.3) fl Neut % (Auto) (34.0-67.9) % Lymph % (Auto) (21.8-53.1) % [place] % (Auto) (5.3-12.2) % Eos % (Auto) (0.8-7.0) Baso % (Auto) (0.1-1.2) % Neut # (Auto) (1.78-5.38) K/mm3 Lymph # (Auto) (1.32-3.57) K/mm3 [place] # (Auto) (0.30-0.82) K/mm3 Eos # (Auto) (0.04-0.54) K/mm3 Baso # (Auto) (0.01-0.08) K/mm3 APTT (21.7-31.4) SECONDS Sodium (136-145) mEq/L Potassium (3.5-5.1) mEq/L Chloride (98-107) mEq/L Carbon Dioxide (21-32) mEq/L Anion Gap (5-15) BUN (7-18) mg/dL Creatinine (0.7-1.3) mg/dL Est Cr Clr Drug Dosing mL/min Estimated GFR (MDRD) (>60) mL/min BUN/Creatinine Ratio (14-18) Glucose (70-99) mg/dL Calcium (8.5-10.1) mg/dL Magnesium (1.8-2.4) mg/dL Total Bilirubin (0.2-1.0) mg/dL AST (15-37) U/L ALT (16-63) U/L Alkaline Phosphatase (46-116) U/L Troponin I 0.199 H* (0.00-0.056) ng/mL Total Protein (6.4-8.2) g/dl Albumin (3.4-5.0) g/dl Globulin gm/dL Albumin/Globulin Ratio (1-2) Result Diagrams: 06/25/21 07:25 06/25/21 07:25 Sepsis Event Note - Focused Exam Vital Signs: Vital Signs Temp Pulse Resp BP Pulse Ox Pulse Ox 06/25/21 15:29 97.5 F 79 17 104/71 95 06/25/21 13:17 79 21 H 119/71 95 06/25/21 13:10 79 94 L 06/25/21 11:13 97.2 F 81 15 124/96 H 97 06/25/21 09:21 98.4 F 78 16 113/88 95 06/25/21 09:00 97 06/25/21 08:35 94 L - Plan Plan:: Case discussed in full. Agree with evaluation, assessment and plan.
[2021-06-25] MEDS: Famotidine 10 MG Tab PO SCH (10:34)
--- NOTE | 2021-06-26 07:33 | PCM.PN ---
<Balaji Aiken - Last Filed: 06/26/21 11:11> - General Info Date of Service: 06/26/21 Admission Dx/Problem (Free Text): Admission Diagnosis/Problem Admission Diagnosis/Problem Pulmonary embolism Functional Status: Reports: Pain Controlled, Tolerating Diet, Ambulating, Urinating. Denies: New Symptoms - Review of Systems General: Reports: No Symptoms. Denies: Fever, Weakness, Fatigue, Malaise, Chills HEENT: Reports: No Symptoms. Denies: Headaches, Sore Throat Pulmonary: Reports: No Symptoms. Denies: Shortness of Breath, Cough, Sputum, Wheezing Cardiovascular: Reports: Dyspnea on Exertion, Edema (chronic ). Denies: Chest Pain, Palpitations Gastrointestinal: Reports: No Symptoms. Denies: Abdominal Pain, Constipation, Diarrhea, Nausea, Vomiting Genitourinary: Reports: No Symptoms. Denies: Pain Musculoskeletal: Reports: No Symptoms Skin: Reports: No Symptoms. Denies: Cyanosis Neurological: Reports: No Symptoms. Denies: Confusion, Dizziness, Headache, Numbness, Pre-Existing Deficit, Seizure, Syncope, Tingling, Difficulty Walking, Weakness, Gait Disturbance Psychiatric: Reports: No Symptoms - Patient Data Vitals - Most Recent: Last Vital Signs Temp 98.1 F 06/26/21 04:10 Pulse 74 06/26/21 04:10 Resp 18 06/26/21 04:10 BP 120/89 06/26/21 04:10 Pulse Ox 93 L 06/26/21 04:10 Weight - Most Recent: 199 lb 11.2 oz I&O - Last 24 Hours: Intake & Output 06/25/21 06/26/21 06/26/21 22:59 06:59 14:59 Intake Total 1030 550 Output Total 1250 400 Balance -220 150 Lab Results Last 24 Hours: Laboratory Results - last 24 hr 06/25/21 06/25/21 06/25/21 Range/Units 07:25 07:25 07:25 WBC 7.24 (4.23-9.07) K/mm3 RBC 4.57 L (4.63-6.08) M/mm3 Hgb 14.0 (13.7-17.5) gm/dl Hct 42.2 (40.1-51.0) % MCV 92.3 H (79.0-92.2) fl MCH 30.6 (25.7-32.2) pg MCHC 33.2 (32.2-35.5) g/dl RDW Std Deviation 44.7 H (35.1-43.9) fL Plt Count 191 (163-337) K/mm3 MPV 9.0 L (9.4-12.3) fl Neut % (Auto) 74.0 H (34.0-67.9) % Lymph % (Auto) 16.4 L (21.8-53.1) % [place] % (Auto) 7.9 (5.3-12.2) % Eos % (Auto) 0.8 (0.8-7.0) Baso % (Auto) 0.6 (0.1-1.2) % Neut # (Auto) 5.36 (1.78-5.38) K/mm3 Lymph # (Auto) 1.19 L (1.32-3.57) K/mm3 [place] # (Auto) 0.57 (0.30-0.82) K/mm3 Eos # (Auto) 0.06 (0.04-0.54) K/mm3 Baso # (Auto) 0.04 (0.01-0.08) K/mm3 APTT 69.8 H (21.7-31.4) SECONDS Sodium 142 (136-145) mEq/L Potassium 4.0 (3.5-5.1) mEq/L Chloride 103 (98-107) mEq/L Carbon Dioxide 26 (21-32) mEq/L Anion Gap 17.0 H (5-15) BUN 13 (7-18) mg/dL Creatinine 0.9 (0.7-1.3) mg/dL Est Cr Clr Drug Dosing 79.98 mL/min Estimated GFR (MDRD) > 60 (>60) mL/min BUN/Creatinine Ratio 14.4 (14-18) Glucose 124 H (70-99) mg/dL Calcium 8.8 (8.5-10.1) mg/dL Magnesium 2.2 (1.8-2.4) mg/dL Total Bilirubin 0.5 (0.2-1.0) mg/dL AST 40 H (15-37) U/L ALT 50 (16-63) U/L Alkaline Phosphatase 64 (46-116) U/L Troponin I (0.00-0.056) ng/mL Total Protein 6.7 (6.4-8.2) g/dl Albumin 3.4 (3.4-5.0) g/dl Globulin 3.3 gm/dL Albumin/Globulin Ratio 1.0 (1-2) 06/25/21 06/25/21 06/26/21 Range/Units 07:25 14:04 05:37 WBC (4.23-9.07) K/mm3 RBC (4.63-6.08) M/mm3 Hgb (13.7-17.5) gm/dl Hct (40.1-51.0) % MCV (79.0-92.2) fl MCH (25.7-32.2) pg MCHC (32.2-35.5) g/dl RDW Std Deviation (35.1-43.9) fL Plt Count (163-337) K/mm3 MPV (9.4-12.3) fl Neut % (Auto) (34.0-67.9) % Lymph % (Auto) (21.8-53.1) % [place] % (Auto) (5.3-12.2) % Eos % (Auto) (0.8-7.0) Baso % (Auto) (0.1-1.2) % Neut # (Auto) (1.78-5.38) K/mm3 Lymph # (Auto) (1.32-3.57) K/mm3 [place] # (Auto) (0.30-0.82) K/mm3 Eos # (Auto) (0.04-0.54) K/mm3 Baso # (Auto) (0.01-0.08) K/mm3 APTT 62.1 H (21.7-31.4) SECONDS Sodium (136-145) mEq/L Potassium (3.5-5.1) mEq/L Chloride (98-107) mEq/L Carbon Dioxide (21-32) mEq/L Anion Gap (5-15) BUN (7-18) mg/dL Creatinine (0.7-1.3) mg/dL Est Cr Clr Drug Dosing mL/min Estimated GFR (MDRD) (>60) mL/min BUN/Creatinine Ratio (14-18) Glucose (70-99) mg/dL Calcium (8.5-10.1) mg/dL Magnesium (1.8-2.4) mg/dL Total Bilirubin (0.2-1.0) mg/dL AST (15-37) U/L ALT (16-63) U/L Alkaline Phosphatase (46-116) U/L Troponin I 0.225 H* 0.199 H* (0.00-0.056) ng/mL Total Protein (6.4-8.2) g/dl Albumin (3.4-5.0) g/dl Globulin gm/dL Albumin/Globulin Ratio (1-2) 06/26/21 Range/Units 06:08 WBC 7.12 (4.23-9.07) K/mm3 RBC 4.44 L (4.63-6.08) M/mm3 Hgb 13.6 L (13.7-17.5) gm/dl Hct 40.9 (40.1-51.0) % MCV 92.1 (79.0-92.2) fl MCH 30.6 (25.7-32.2) pg MCHC 33.3 (32.2-35.5) g/dl RDW Std Deviation 44.0 H (35.1-43.9) fL Plt Count 197 (163-337) K/mm3 MPV 9.0 L (9.4-12.3) fl Neut % (Auto) 75.2 H (34.0-67.9) % Lymph % (Auto) 13.8 L (21.8-53.1) % [place] % (Auto) 8.7 (5.3-12.2) % Eos % (Auto) 1.3 (0.8-7.0) Baso % (Auto) 0.7 (0.1-1.2) % Neut # (Auto) 5.36 (1.78-5.38) K/mm3 Lymph # (Auto) 0.98 L (1.32-3.57) K/mm3 [place] # (Auto) 0.62 (0.30-0.82) K/mm3 Eos # (Auto) 0.09 (0.04-0.54) K/mm3 Baso # (Auto) 0.05 (0.01-0.08) K/mm3 APTT (21.7-31.4) SECONDS Sodium (136-145) mEq/L Potassium (3.5-5.1) mEq/L Chloride (98-107) mEq/L Carbon Dioxide (21-32) mEq/L Anion Gap (5-15) BUN (7-18) mg/dL Creatinine (0.7-1.3) mg/dL Est Cr Clr Drug Dosing mL/min Estimated GFR (MDRD) (>60) mL/min BUN/Creatinine Ratio (14-18) Glucose (70-99) mg/dL Calcium (8.5-10.1) mg/dL Magnesium (1.8-2.4) mg/dL Total Bilirubin (0.2-1.0) mg/dL AST (15-37) U/L ALT (16-63) U/L Alkaline Phosphatase (46-116) U/L Troponin I (0.00-0.056) ng/mL Total Protein (6.4-8.2) g/dl Albumin (3.4-5.0) g/dl Globulin gm/dL Albumin/Globulin Ratio (1-2) Med Orders - Current: Current Medications Acetaminophen (Acetaminophen 325 Mg Tab) 650 mg PO Q4H PRN PRN Reason: Pain (Mild 1-3)/fever Albuterol (Albuterol 0.083% 2.5 Mg/3 Ml Neb Soln) 2.5 mg NEB Q2H PRN PRN Reason: Shortness Of Breath/wheezing Albuterol/Ipratropium (Albuterol/Ipratropium 3.0-0.5 Mg/3 Ml Neb Soln) 3 ml NEB Q4H PRN PRN Reason: Shortness Of Breath/wheezing Famotidine (Famotidine 10 Mg Tab) 10 mg PO DAILY AYDE Last Admin: 06/25/21 10:34 Dose: 10 mg Documented by: Heparin Sodium/Dextrose (Heparin 25,000 Units In D5w 500 Ml) 25,000 units in 500 mls @ 33.312 mls/hr IV TITRATE AYDE; Protocol Last Admin: 06/25/21 19:26 Dose: 18 units/kg/hr, 33.312 mls/hr Documented by: Magnesium Hydroxide (Magnesium Hydroxide 400 Mg/5 Ml Susp 30 Ml Cup) 30 ml PO ONETIME ONE Stop: 06/26/21 09:01 Ondansetron HCl (Ondansetron 4 Mg/2 Ml Sdv) 4 mg IV Q6H PRN PRN Reason: Nausea/Vomiting Oxycodone HCl (Oxycodone 5 Mg Tab) 5 mg PO Q4H PRN PRN Reason: Pain (moderate 4-6) Sodium Chloride (Sodium Chloride 0.9% 10 Ml Syringe) 10 ml FLUSH ASDIRECTED PRN PRN Reason: Keep Vein Open Last Admin: 06/24/21 09:48 Dose: 10 ml Documented by: Sodium Chloride (Sodium Chloride 0.9% 10 Ml Syringe) 10 ml FLUSH ONETIME PRN PRN Reason: IV FLUSH Last Admin: 06/24/21 11:20 Dose: 10 ml Documented by: Temazepam (Temazepam 15 Mg Cap) 15 mg PO BEDTIME PRN PRN Reason: Sleep Discontinued Medications Heparin Sodium (Porcine) (Heparin Sodium 5,000 Units/Ml Vial) 7,000 units IVPUSH .BOLUS ONE Stop: 06/24/21 12:15 Last Admin: 06/24/21 12:30 Dose: 7,000 units Documented by: Sodium Chloride (Normal Saline) 100 mls @ 75 mls/hr IV ASDIRECTED AYDE Last Admin: 06/24/21 11:20 Dose: 75 mls/hr Documented by: Iopamidol (Iopamidol 755 Mg/Ml 100 Ml Bottle) 100 ml IVPUSH ONETIME ONE Stop: 06/24/21 10:59 Last Admin: 06/24/21 11:19 Dose: 100 ml Documented by: - Exam Quality Assessment: DVT Prophylaxis. No: Supplemental Oxygen, Urine Catheter General: Alert, Oriented, Cooperative, No Acute Distress HEENT: Pupils Equal, Pupils Reactive, Mucous Membr. Moist/[place] Neck: Supple, Trachea Midline Lungs: Clear to Auscultation, Normal Respiratory Effort Cardiovascular: Regular Rate, Regular Rhythm GI/Abdominal Exam: Normal Bowel Sounds, Soft, Non-Tender, No Distention, Hernia (umbilical) (Male) Exam: Deferred Back Exam: Normal Inspection, Full Range of Motion Extremities: Normal Range of Motion, Non-Tender, Normal Capillary Refill, Pedal Edema (trace), Other (Lower extremity discoloration consistent with peripheral vascular disease.) Skin: Warm, Dry, Intact Neurological: No New Focal Deficit Psy/Mental Status: Alert, Normal Affect, Normal Mood - Patient Data Lab Results Last 24 hrs: Laboratory Results - last 24 hr 06/25/21 06/25/21 06/25/21 Range/Units 07:25 07:25 07:25 WBC 7.24 (4.23-9.07) K/mm3 RBC 4.57 L (4.63-6.08) M/mm3 Hgb 14.0 (13.7-17.5) gm/dl Hct 42.2 (40.1-51.0) % MCV 92.3 H (79.0-92.2) fl MCH 30.6 (25.7-32.2) pg MCHC 33.2 (32.2-35.5) g/dl RDW Std Deviation 44.7 H (35.1-43.9) fL Plt Count 191 (163-337) K/mm3 MPV 9.0 L (9.4-12.3) fl Neut % (Auto) 74.0 H (34.0-67.9) % Lymph % (Auto) 16.4 L (21.8-53.1) % [place] % (Auto) 7.9 (5.3-12.2) % Eos % (Auto) 0.8 (0.8-7.0) Baso % (Auto) 0.6 (0.1-1.2) % Neut # (Auto) 5.36 (1.78-5.38) K/mm3 Lymph # (Auto) 1.19 L (1.32-3.57) K/mm3 [place] # (Auto) 0.57 (0.30-0.82) K/mm3 Eos # (Auto) 0.06 (0.04-0.54) K/mm3 Baso # (Auto) 0.04 (0.01-0.08) K/mm3 APTT 69.8 H (21.7-31.4) SECONDS Sodium 142 (136-145) mEq/L Potassium 4.0 (3.5-5.1) mEq/L Chloride 103 (98-107) mEq/L Carbon Dioxide 26 (21-32) mEq/L Anion Gap 17.0 H (5-15) BUN 13 (7-18) mg/dL Creatinine 0.9 (0.7-1.3) mg/dL Est Cr Clr Drug Dosing 79.98 mL/min Estimated GFR (MDRD) > 60 (>60) mL/min BUN/Creatinine Ratio 14.4 (14-18) Glucose 124 H (70-99) mg/dL Calcium 8.8 (8.5-10.1) mg/dL Magnesium 2.2 (1.8-2.4) mg/dL Total Bilirubin 0.5 (0.2-1.0) mg/dL AST 40 H (15-37) U/L ALT 50 (16-63) U/L Alkaline Phosphatase 64 (46-116) U/L Troponin I (0.00-0.056) ng/mL Total Protein 6.7 (6.4-8.2) g/dl Albumin 3.4 (3.4-5.0) g/dl Globulin 3.3 gm/dL Albumin/Globulin Ratio 1.0 (1-2) 06/25/21 06/25/21 06/26/21 Range/Units 07:25 14:04 05:37 WBC (4.23-9.07) K/mm3 RBC (4.63-6.08) M/mm3 Hgb (13.7-17.5) gm/dl Hct (40.1-51.0) % MCV (79.0-92.2) fl MCH (25.7-32.2) pg MCHC (32.2-35.5) g/dl RDW Std Deviation (35.1-43.9) fL Plt Count (163-337) K/mm3 MPV (9.4-12.3) fl Neut % (Auto) (34.0-67.9) % Lymph % (Auto) (21.8-53.1) % [place] % (Auto) (5.3-12.2) % Eos % (Auto) (0.8-7.0) Baso % (Auto) (0.1-1.2) % Neut # (Auto) (1.78-5.38) K/mm3 Lymph # (Auto) (1.32-3.57) K/mm3 [place] # (Auto) (0.30-0.82) K/mm3 Eos # (Auto) (0.04-0.54) K/mm3 Baso # (Auto) (0.01-0.08) K/mm3 APTT 62.1 H (21.7-31.4) SECONDS Sodium (136-145) mEq/L Potassium (3.5-5.1) mEq/L Chloride (98-107) mEq/L Carbon Dioxide (21-32) mEq/L Anion Gap (5-15) BUN (7-18) mg/dL Creatinine (0.7-1.3) mg/dL Est Cr Clr Drug Dosing mL/min Estimated GFR (MDRD) (>60) mL/min BUN/Creatinine Ratio (14-18) Glucose (70-99) mg/dL Calcium (8.5-10.1) mg/dL Magnesium (1.8-2.4) mg/dL Total Bilirubin (0.2-1.0) mg/dL AST (15-37) U/L ALT (16-63) U/L Alkaline Phosphatase (46-116) U/L Troponin I 0.225 H* 0.199 H* (0.00-0.056) ng/mL Total Protein (6.4-8.2) g/dl Albumin (3.4-5.0) g/dl Globulin gm/dL Albumin/Globulin Ratio (1-2) 06/26/21 Range/Units 06:08 WBC 7.12 (4.23-9.07) K/mm3 RBC 4.44 L (4.63-6.08) M/mm3 Hgb 13.6 L (13.7-17.5) gm/dl Hct 40.9 (40.1-51.0) % MCV 92.1 (79.0-92.2) fl MCH 30.6 (25.7-32.2) pg MCHC 33.3 (32.2-35.5) g/dl RDW Std Deviation 44.0 H (35.1-43.9) fL Plt Count 197 (163-337) K/mm3 MPV 9.0 L (9.4-12.3) fl Neut % (Auto) 75.2 H (34.0-67.9) % Lymph % (Auto) 13.8 L (21.8-53.1) % [place] % (Auto) 8.7 (5.3-12.2) % Eos % (Auto) 1.3 (0.8-7.0) Baso % (Auto) 0.7 (0.1-1.2) % Neut # (Auto) 5.36 (1.78-5.38) K/mm3 Lymph # (Auto) 0.98 L (1.32-3.57) K/mm3 [place] # (Auto) 0.62 (0.30-0.82) K/mm3 Eos # (Auto) 0.09 (0.04-0.54) K/mm3 Baso # (Auto) 0.05 (0.01-0.08) K/mm3 APTT (21.7-31.4) SECONDS Sodium (136-145) mEq/L Potassium (3.5-5.1) mEq/L Chloride (98-107) mEq/L Carbon Dioxide (21-32) mEq/L Anion Gap (5-15) BUN (7-18) mg/dL Creatinine (0.7-1.3) mg/dL Est Cr Clr Drug Dosing mL/min Estimated GFR (MDRD) (>60) mL/min BUN/Creatinine Ratio (14-18) Glucose (70-99) mg/dL Calcium (8.5-10.1) mg/dL Magnesium (1.8-2.4) mg/dL Total Bilirubin (0.2-1.0) mg/dL AST (15-37) U/L ALT (16-63) U/L Alkaline Phosphatase (46-116) U/L Troponin I (0.00-0.056) ng/mL Total Protein (6.4-8.2) g/dl Albumin (3.4-5.0) g/dl Globulin gm/dL Albumin/Globulin Ratio (1-2) Result Diagrams: 06/26/21 06:08 06/26/21 06:02 Sepsis Event Note - Evaluation Sepsis Screening Result: No Definite Risk - Focused Exam Vital Signs: Vital Signs Temp Pulse Resp BP Pulse Ox 06/26/21 04:10 98.1 F 74 18 120/89 93 L 06/26/21 00:10 96.3 F L 75 20 117/83 93 L 06/25/21 20:04 98.4 F 76 20 115/73 94 L - Problem List & Annotations (1) LUDWIN (obstructive sleep apnea) SNOMED Code(s): 02984740 Code(s): G47.33 - OBSTRUCTIVE SLEEP APNEA (ADULT) (PEDIATRIC) Status: Chronic Priority: Low Current Visit: No (2) Plasmacytoma SNOMED Code(s): 364855073 Code(s): C90.30 - SOLITARY PLASMACYTOMA NOT HAVING ACHIEVED REMISSION Status: Chronic Priority: High Current Visit: Yes Qualifiers: Plasmacytoma type: unspecified type Plasmacytoma active/remission status: not having achieved remission Qualified Code(s): C90.30 - Solitary p lasmacytoma not having achieved remission (3) Pulmonary embolism SNOMED Code(s): 75009325 Code(s): I26.99 - OTHER PULMONARY EMBOLISM WITHOUT ACUTE COR PULMONALE Status: Acute Priority: High Current Visit: Yes Qualifiers: Pulmonary embolism type: unspecified Chronicity: acute Acute cor pulmonale presence: with acute cor pulmonale Qualified Code(s): I26.09 - Other pulmonary embolism with acute cor pulmonale - Problem List Review Problem List Initiated/Reviewed/Updated: Yes - My Orders Last 24 Hours: My Active Orders 06/25/21 10:25 CPAP Noctural Home [RT BiPAP/CPAP] [RC] ASDIRECTED 06/25/21 10:30 Famotidine [Pepcid] 10 mg PO DAILY 06/26/21 05:11 CMP [COMPREHENSIVE METABOLIC PN,CMP] [CHEM] AM MAGNESIUM [CHEM] AM TROPONIN I [CHEM] AM 06/27/21 05:11 CBC WITH AUTO DIFF [HEME] AM CMP [COMPREHENSIVE METABOLIC PN,CMP] [CHEM] AM MAGNESIUM [CHEM] AM 06/28/21 05:11 CBC WITH AUTO DIFF [HEME] AM CMP [COMPREHENSIVE METABOLIC PN,CMP] [CHEM] AM MAGNESIUM [CHEM] AM 06/29/21 05:11 CBC WITH AUTO DIFF [HEME] AM MAGNESIUM [CHEM] AM - Plan Plan:: 71-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 There continues concerned that this could progress causing hemodynamic instability. Unfortunately, Dr. Eng at [facility] in [place] felt he was not at high enough risk to transfer to a tertiary care hospital where they had interventional radiology available. * Started on heparin drip in the emergency department Plasmacytoma of the pelvis * Followed by Dr. Seals * 6 weeks of radiation therapy fall * PET scan scheduled for next week LUDWIN * On home CPAP * Family is bringing CPAP in 06/25/2021 This is a 71-year-old male admitted to the floor after being found to have sever e pulmonary emboli with right heart strain. He was started on a heparin drip in the emergency room and this will continue for 48 hours. At that time we will likely transition to a DOAC. Troponin remains elevated but stable. We will recheck this today at 1330 and again in the morning. Overall he states he feels pretty good. He is still requiring 2 L of oxygen. Denies any chest pain. Family is going to bring in the patient's home CPAP and we will continue that when it arrives. Likely discharge in 1 to 2 days pending stability. Echocardiogram was ordered today and is also pending. 06/26/2021 61-year-old male admitted to the floor for severe pulmonary embolism with right heart strain. He continues on a heparin drip and will be converted to 50 mg twice daily AC Xarelto today at suppertime. We will stop the heparin drip about hour before. He is weaned off oxygen today and reports he feels pretty good. He does have mild dyspnea with exertion. Troponin has trended down from 0.225 on the floor during admission to 0.199 and today 0.066. Will not continue to recheck this. aPTT today was 62.1. Vital signs have been stable. He will continue 50 mg p.o. twice daily for 21 days and then transition to 20 mg p.o. daily. Hopeful for discharge tomorrow pending continued stability. Plan * Admit to medical floor * Discontinue heparin drip tonight at 1600 * Convert to xarelto 15mg BID starting tonight * Follow heparin protocol and PTT * Repeat CBC and CMP in the morning * FiO2 to keep SPO2 greater than 92% * Hopeful for discharge tomorrow VTE prophylaxis with heparin drip converting to xarelto today CODE STATUS: Full code PCP: Dr. Espana <Reinaldo Boyd Jr - Last Filed: 06/26/21 20:13> - Patient Data Vitals - Most Recent: Last Vital Signs Temp 98.9 F 06/26/21 19:30 Pulse 86 06/26/21 19:30 Resp 26 H 06/26/21 19:30 BP 132/89 06/26/21 19:30 Pulse Ox 92 L 06/26/21 19:30 I&O - Last 24 Hours: Intake & Output 06/26/21 06/26/21 06/26/21 06:59 14:59 22:59 Intake Total 550 240 240 Output Total 400 Balance 150 240 240 Lab Results Last 24 Hours: Laboratory Results - last 24 hr 06/26/21 06/26/21 06/26/21 Range/Units 05:37 06:02 06:08 WBC 7.12 (4.23-9.07) K/mm3 RBC 4.44 L (4.63-6.08) M/mm3 Hgb 13.6 L (13.7-17.5) gm/dl Hct 40.9 (40.1-51.0) % MCV 92.1 (79.0-92.2) fl MCH 30.6 (25.7-32.2) pg MCHC 33.3 (32.2-35.5) g/dl RDW Std Deviation 44.0 H (35.1-43.9) fL Plt Count 197 (163-337) K/mm3 MPV 9.0 L (9.4-12.3) fl Neut % (Auto) 75.2 H (34.0-67.9) % Lymph % (Auto) 13.8 L (21.8-53.1) % [place] % (Auto) 8.7 (5.3-12.2) % Eos % (Auto) 1.3 (0.8-7.0) Baso % (Auto) 0.7 (0.1-1.2) % Neut # (Auto) 5.36 (1.78-5.38) K/mm3 Lymph # (Auto) 0.98 L (1.32-3.57) K/mm3 [place] # (Auto) 0.62 (0.30-0.82) K/mm3 Eos # (Auto) 0.09 (0.04-0.54) K/mm3 Baso # (Auto) 0.05 (0.01-0.08) K/mm3 APTT 62.1 H (21.7-31.4) SECONDS Sodium 140 (136-145) mEq/L Potassium 4.0 (3.5-5.1) mEq/L Chloride 103 (98-107) mEq/L Carbon Dioxide 23 (21-32) mEq/L Anion Gap 18.0 H (5-15) BUN 16 (7-18) mg/dL Creatinine 0.9 (0.7-1.3) mg/dL Est Cr Clr Drug Dosing 79.98 mL/min Estimated GFR (MDRD) > 60 (>60) mL/min BUN/Creatinine Ratio 17.8 (14-18) Glucose 123 H (70-99) mg/dL Calcium 8.8 (8.5-10.1) mg/dL Magnesium 2.2 (1.8-2.4) mg/dL Total Bilirubin 0.5 (0.2-1.0) mg/dL AST 35 (15-37) U/L ALT 61 (16-63) U/L Alkaline Phosphatase 64 (46-116) U/L Troponin I 0.066 H* (0.00-0.056) ng/mL Total Protein 6.7 (6.4-8.2) g/dl Albumin 3.2 L (3.4-5.0) g/dl Globulin 3.5 gm/dL Albumin/Globulin Ratio 0.9 L (1-2) Med Orders - Current: Current Medications Acetaminophen (Acetaminophen 325 Mg Tab) 650 mg PO Q4H PRN PRN Reason: Pain (Mild 1-3)/fever Albuterol (Albuterol 0.083% 2.5 Mg/3 Ml Neb Soln) 2.5 mg NEB Q2H PRN PRN Reason: Shortness Of Breath/wheezing Albuterol/Ipratropium (Albuterol/Ipratropium 3.0-0.5 Mg/3 Ml Neb Soln) 3 ml NEB Q4H PRN PRN Reason: Shortness Of Breath/wheezing Famotidine (Famotidine 10 Mg Tab) 10 mg PO DAILY AYDE Last Admin: 06/26/21 08:36 Dose: 10 mg Documented by: Ondansetron HCl (Ondansetron 4 Mg/2 Ml Sdv) 4 mg IV Q6H PRN PRN Reason: Nausea/Vomiting Oxycodone HCl (Oxycodone 5 Mg Tab) 5 mg PO Q4H PRN PRN Reason: Pain (moderate 4-6) Rivaroxaban (Rivaroxaban 15 Mg Tab) 15 mg PO BIDAC [facility] Last Admin: 06/26/21 15:57 Dose: 15 mg Documented by: Sodium Chloride (Sodium Chloride 0.9% 10 Ml Syringe) 10 ml FLUSH ASDIRECTED PRN PRN Reason: Keep Vein Open Last Admin: 06/24/21 09:48 Dose: 10 ml Documented by: Temazepam (Temazepam 15 Mg Cap) 15 mg PO BEDTIME PRN PRN Reason: Sleep Discontinued Medications Heparin Sodium (Porcine) (Heparin Sodium 5,000 Units/Ml Vial) 7,000 units IVPUSH .BOLUS ONE Stop: 06/24/21 12:15 Last Admin: 06/24/21 12:30 Dose: 7,000 units Documented by: Sodium Chloride (Normal Saline) 100 mls @ 75 mls/hr IV ASDIRECTED AYDE Last Admin: 06/24/21 11:20 Dose: 75 mls/hr Documented by: Heparin Sodium/Dextrose (Heparin 25,000 Units In D5w 500 Ml) 25,000 units in 500 mls @ 33.312 mls/hr IV TITRATE [facility]; Protocol Stop: 06/26/21 16:00 Last Admin: 06/26/21 11:05 Dose: 18 units/kg/hr, 33.312 mls/hr Documented by: Iopamidol (Iopamidol 755 Mg/Ml 100 Ml Bottle) 100 ml IVPUSH ONETIME ONE Stop: 06/24/21 10:59 Last Admin: 06/24/21 11:19 Dose: 100 ml Documented by: Magnesium Hydroxide (Magnesium Hydroxide 400 Mg/5 Ml Susp 30 Ml Cup) 30 ml PO ONETIME ONE Stop: 06/26/21 09:01 Last Admin: 06/26/21 08:36 Dose: 30 ml Documented by: Sodium Chloride (Sodium Chloride 0.9% 10 Ml Syringe) 10 ml FLUSH ONETIME PRN PRN Reason: IV FLUSH Last Admin: 06/24/21 11:20 Dose: 10 ml Documented by: - Patient Data Lab Results Last 24 hrs: Laboratory Results - last 24 hr 06/26/21 06/26/21 06/26/21 Range/Units 05:37 06:02 06:08 WBC 7.12 (4.23-9.07) K/mm3 RBC 4.44 L (4.63-6.08) M/mm3 Hgb 13.6 L (13.7-17.5) gm/dl Hct 40.9 (40.1-51.0) % MCV 92.1 (79.0-92.2) fl MCH 30.6 (25.7-32.2) pg MCHC 33.3 (32.2-35.5) g/dl RDW Std Deviation 44.0 H (35.1-43.9) fL Plt Count 197 (163-337) K/mm3 MPV 9.0 L (9.4-12.3) fl Neut % (Auto) 75.2 H (34.0-67.9) % Lymph % (Auto) 13.8 L (21.8-53.1) % [place] % (Auto) 8.7 (5.3-12.2) % Eos % (Auto) 1.3 (0.8-7.0) Baso % (Auto) 0.7 (0.1-1.2) % Neut # (Auto) 5.36 (1.78-5.38) K/mm3 Lymph # (Auto) 0.98 L (1.32-3.57) K/mm3 [place] # (Auto) 0.62 (0.30-0.82) K/mm3 Eos # (Auto) 0.09 (0.04-0.54) K/mm3 Baso # (Auto) 0.05 (0.01-0.08) K/mm3 APTT 62.1 H (21.7-31.4) SECONDS Sodium 140 (136-145) mEq/L Potassium 4.0 (3.5-5.1) mEq/L Chloride 103 (98-107) mEq/L Carbon Dioxide 23 (21-32) mEq/L Anion Gap 18.0 H (5-15) BUN 16 (7-18) mg/dL Creatinine 0.9 (0.7-1.3) mg/dL Est Cr Clr Drug Dosing 79.98 mL/min Estimated GFR (MDRD) > 60 (>60) mL/min BUN/Creatinine Ratio 17.8 (14-18) Glucose 123 H (70-99) mg/dL Calcium 8.8 (8.5-10.1) mg/dL Magnesium 2.2 (1.8-2.4) mg/dL Total Bilirubin 0.5 (0.2-1.0) mg/dL AST 35 (15-37) U/L ALT 61 (16-63) U/L Alkaline Phosphatase 64 (46-116) U/L Troponin I 0.066 H* (0.00-0.056) ng/mL Total Protein 6.7 (6.4-8.2) g/dl Albumin 3.2 L (3.4-5.0) g/dl Globulin 3.5 gm/dL Albumin/Globulin Ratio 0.9 L (1-2) Result Diagrams: 06/26/21 06:08 06/26/21 06:02 Sepsis Event Note - Focused Exam Vital Signs: Vital Signs Temp Temp Pulse Pulse Resp BP BP 06/26/21 19:30 98.9 F 86 26 H 132/89 06/26/21 12:24 98.6 F 74 18 127/71 06/26/21 09:27 98.4 F 06/26/21 08:42 68 18 121/86 Pulse Ox 06/26/21 19:30 92 L 06/26/21 12:24 91 L 06/26/21 09:27 06/26/21 08:42 96 - Plan Plan:: Case discussed in full. Agree with evaluation, assessment and plan.
[2021-06-26] MEDS: Famotidine 10 MG Tab PO SCH (08:36)
[2021-06-26] MEDS ORDERED: Magnesium Hydroxide 400 MG/5 ML Susp 30 ML Cup PO ONE (09:00)
[2021-06-26] MEDS: Heparin Sodium/D5W 25,000 UNITS/500 ML BAG IV SCH (11:05)
[2021-06-26] MEDS: Rivaroxaban 15 MG Tab PO SCH (15:57)
[2021-06-27] MEDS: Rivaroxaban 15 MG Tab PO SCH (07:27)
[2021-06-27] MEDS: Famotidine 10 MG Tab PO SCH (07:28)
--- NOTE | 2021-06-27 09:09 | PCM.DCSUM1 ---
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 He states that for the last 5 days he has had episodes off and on of mild dyspnea, but it became progressively worse this morning. He denies any fever or chills. Denies any cough. He did have his third dose of Pfizer vaccine 5 days ago on June 19. He did take a car ride to [employer] other things you bake last weekend. He has never had a blood clot before. In the emergency department he was found to have, on CTA, severe pulmonary emboli. This causes elevated right heart pressures with decreased size of the left ventricle and bowing of the intravertebral septum into the left heart. Dr. Naranjo in the emergency department consulted Dr. Garcia at [facility] in [place] in the interventional radiology department. He felt that because his vitals were stable and clinically not in distress he would classify this as a "submassive PE" and would not surgically treat this. He recommended treatment with heparin and that they would take him because if he becomes unstable INR is more available since we [place] 100 miles away. Unfortunately, the hospitalist on-call, Dr. Brothers, refused transfer stating it was a "lateral transfer". Patient is followed by Dr. Seals in oncology. He states that he has been getting follow-up labs every 3 months and was sent for a PET scan next week. On arrival patient's oxygen saturations were 85. He is not on oxygen at home. Diagnosis: Stroke: No - Discharge Data Discharge Date: 06/27/21 (Admit date - 06/24/2021) Discharge Disposition: Home, Self-Care 01 Condition: Good - Referral to Home Health Primary Care Physician: Fletcher Espana MD - Discharge Diagnosis/Problem(s) (1) LUDWIN (obstructive sleep apnea) SNOMED Code(s): 90110312 ICD Code: G47.33 - OBSTRUCTIVE SLEEP APNEA (ADULT) (PEDIATRIC) Status: Chronic Priority: Low (2) Plasmacytoma SNOMED Code(s): 501709564 ICD Code: C90.30 - SOLITARY PLASMACYTOMA NOT HAVING ACHIEVED REMISSION Status: Chronic Priority: High Qualifiers: Plasmacytoma type: unspecified type Plasmacytoma active/remission status: not having achieved remission Qualified Code(s): C90.30 - Solitary plasmacytoma not having achieved remission (3) Pulmonary embolism SNOMED Code(s): 48954870 ICD Code: I26.99 - OTHER PULMONARY EMBOLISM WITHOUT ACUTE COR PULMONALE Status: Acute Priority: High Qualifiers: Pulmonary embolism type: unspecified Chronicity: acute Acute cor pulmonale presence: with acute cor pulmonale Qualified Code(s): I26.09 - Other pulmonary embolism with acute cor pulmonale - Patient Summary/Data Labs Pending at D/C: None Recommended Follow-up Testing/Procedures: Follow-up with primary care provider within 7 to 10 days of discharge, sooner if needed. * Patient given work note and may return to work on 07/02/2021. * Patient weaned off oxygen prior to discharge. * Patient discharged on 21 days of 15 mg twice daily AC Xarelto. He was sent a prescription for 40 doses of this, as he had had 2 doses while here. He will need 20 mg p.o. daily thereafter and PCP will need to prescribe this. * All home medications were continued at discharge. Recommend follow-up with oncology as before. Hospital Course: This is a 71-year-old male admitted to the floor due to severe pulmonary emboli. He does have a history of plasmacytoma and is undergoing treatment with Dr. Seals, oncologist. He did have his third COVID-19 vaccination 5 days prior to presenting to the ED. CTA was performed in the ED showing severe pulmonary emboli as described which causes elevated right heart pressure with decreased size of the left ventricle and bowing of the intervertebral septum into the left heart. There are other incidental findings also noted. Initial plan was to transfer the patient to a facility capable of interventional radiology however this was ultimately refused by their hospitalist. Patient was started on a heparin drip in the emergency department and subsequently mated to the medical floor. He does have baseline LUDWIN and is on home CPAP, which he did wear while here. He was requiring oxygen on admission with saturations of 85% on room air. This improved to upper 90s with 2 L. He was weaned off oxygen prior to discharge. Troponins were trended and did decrease. Echocardiogram was obtained on 06/25/2021 showed 1. Left ventricular ejection fraction, by visual estimation is 60 to 65%. 2. Impaired relaxation (Grade 1) pattern of LV diastolic filling. 3. Moderate proximal septal hypertrophy. 4. Moderate RV enlargement with moderate RV systolic dysfunction (slide 70) Yi sign is present. Consider pulmonary embolism. 5. No aortic valve stenosis. 6. No evidence of mitral valve regurgitation. 7. Mild tricuspid valve regurgitation. 8. The right ventricular systolic pressure is moderately elevated at 53.4 mmHg. 9. No regional wall motion abnormalities. Patient was ultimately positioned from heparin infusion to Xarelto 15 mg twice daily AC for 21 days. He received 2 doses of Xarelto while here so a prescription for 40 doses was sent to the patient's pharmacy. After this time he will need to transition to 20 mg daily for at least 6 months. Labs remained stable. Patient was ambulating around the halls without difficulty. Discharged home today. Xarelto prescription sent to patient's pharmacy as noted. All other home medications were continued. - Patient Instructions Diet: Usual Diet as Tolerated Activity: As Tolerated Driving: May Drive Today Showering/Bathing: May Shower Notify Provider of: Fever, Increased Pain, Nausea and/or Vomiting Other/Special Instructions: Follow-up with primary care provider within 7 to 10 days of discharge, sooner if needed. Follow-up with oncology as prior. You were started on a medication called Xarelto. You may have seen this on TV as there are several ads. It is a "blood thinner." You will need to take this for a total of 21 days twice a day with breakfast and supper. After 21 days you will go to once a day dosing. He will likely need to be on this for 6 months or longer. Keep in mind you received 2 doses while here. You should take your first dose tonight. The full prescription for these 21 days was sent to your pharmacy. Take this until you run out. You will need to talk to your primary care provider about getting the once a day dosing. Keep in mind because you are on a blood thinner you are at high risk for bruising and bleeding. Contact your primary care provider or return the emergency room should you notice any bleeding that will not stop, blood in your stool, or black tarry stool. You were weaned off of oxygen prior to discharge and will not need this at home. Resume home medications as directed. You were provided a work note you may return to work next week as we discussed. Should symptoms return or worsen contact primary care provider or return to the emergency room. - Discharge Plan *PRESCRIPTION DRUG MONITORING PROGRAM REVIEWED*: No *COPY OF PRESCRIPTION DRUG MONITORING REPORT IN PATIENT CHARLES: No Prescriptions/Med Rec: Rivaroxaban [Xarelto] 15 mg PO BIDAC #40 tablet Home Medications: Home Meds Calcium Citrate 1 tab PO DAILY 06/24/21 [History] Cyanocobalamin (Vitamin B-12) [Vitamin B-12] 1,000 mcg PO DAILY 06/24/21 [History] Famotidine [Pepcid] 10 mg PO DAILY 06/24/21 [History] Ferrous Sulfate 325 mg PO DAILY 06/24/21 [History] Glucosamine/D3/Boswellia Mar [Glucosamine Complex Tablet] 2 tab PO DAILY 03/07 [History] Losartan [Cozaar] 100 mg PO DAILY 06/24/21 [History] Multivitamin with Minerals [Multiple Vitamin] 1 tab PO DAILY 06/24/21 [History] hydroCHLOROthiazide [Hydrochlorothiazide] 12.5 mg PO DAILY 06/24/21 [History] Rivaroxaban [Xarelto] 15 mg PO BIDAC #40 tablet 06/27/21 [Rx] Oxygen Therapy Mode: Room Air Patient Handouts: Rivaroxaban oral tablets, Pulmonary Embolism Forms: ED Department Discharge Referrals: Fletcher Espana MD [Primary Care Provider] - 07/03/21 1:00 pm (Giulia Aguilar will be who you will see do to Dr. Espana out of the office. Please arrive at 12:45 for check in.) - Discharge Summary/Plan Comment DC Time >30 min.: Yes Total # of Minutes for Discharge Time: 45 - General Info Date of Service: 06/27/21 Admission Dx/Problem (Free Text: Admission Diagnosis/Problem Admission Diagnosis/Problem Pulmonary embolism Functional Status: Reports: Pain Controlled, Tolerating Diet, Ambulating, Urinating. Denies: New Symptoms, Incentive Spirometry - Review of Systems General: Reports: No Symptoms. Denies: Fever, Weakness, Fatigue, Malaise, Chills HEENT: Reports: No Symptoms. Denies: Headaches, Sore Throat Pulmonary: Reports: No Symptoms. Denies: Shortness of Breath, Pleuritic Chest Pain, Cough, Sputum, Wheezing Cardiovascular: Reports: No Symptoms. Denies: Chest Pain, Palpitations, Dyspnea on Exertion, Edema Gastrointestinal: Reports: No Symptoms. Denies: Abdominal Pain, Constipation, Diarrhea, Nausea, Vomiting Genitourinary: Reports: No Symptoms. Denies: Pain Musculoskeletal: Reports: No Symptoms Skin: Reports: No Symptoms. Denies: Cyanosis Neurological: Reports: No Symptoms. Denies: Confusion, Dizziness, Headache, Numbness, Pre-Existing Deficit, Seizure, Syncope, Tingling, Tremors, Difficulty Walking, Weakness, Gait Disturbance Psychiatric: Reports: No Symptoms - Patient Data Vitals - Most Recent: Last Vital Signs Temp 97.7 F 06/27/21 07:26 Pulse 67 06/27/21 07:26 Resp 16 06/27/21 07:26 BP 141/73 H 06/27/21 07:26 Pulse Ox 92 L 06/27/21 07:26 Weight - Most Recent: 199 lb I&O - Last 24 hours: Intake & Output 06/26/21 06/27/21 06/27/21 22:59 06:59 14:59 Intake Total 1515 Output Total 400 Balance 1115 Lab Results - Last 24 hrs: Laboratory Results - last 24 hr 06/26/21 06/27/21 06/27/21 Range/Units 06:02 05:58 05:58 WBC 6.03 (4.23-9.07) K/mm3 RBC 4.58 L (4.63-6.08) M/mm3 Hgb 13.9 (13.7-17.5) gm/dl Hct 42.4 (40.1-51.0) % MCV 92.6 H (79.0-92.2) fl MCH 30.3 (25.7-32.2) pg MCHC 32.8 (32.2-35.5) g/dl RDW Std Deviation 43.7 (35.1-43.9) fL Plt Count 231 (163-337) K/mm3 MPV 9.0 L (9.4-12.3) fl Neut % (Auto) 71.4 H (34.0-67.9) % Lymph % (Auto) 16.3 L (21.8-53.1) % [place] % (Auto) 9.3 (5.3-12.2) % Eos % (Auto) 1.5 (0.8-7.0) Baso % (Auto) 1.0 (0.1-1.2) % Neut # (Auto) 4.31 (1.78-5.38) K/mm3 Lymph # (Auto) 0.98 L (1.32-3.57) K/mm3 [place] # (Auto) 0.56 (0.30-0.82) K/mm3 Eos # (Auto) 0.09 (0.04-0.54) K/mm3 Baso # (Auto) 0.06 (0.01-0.08) K/mm3 Sodium 140 141 (136-145) mEq/L Potassium 4.0 4.5 (3.5-5.1) mEq/L Chloride 103 105 (98-107) mEq/L Carbon Dioxide 23 25 (21-32) mEq/L Anion Gap 18.0 H 15.5 H (5-15) BUN 16 22 H (7-18) mg/dL Creatinine 0.9 1.0 (0.7-1.3) mg/dL Est Cr Clr Drug Dosing 79.98 71.99 mL/min Estimated GFR (MDRD) > 60 > 60 (>60) mL/min BUN/Creatinine Ratio 17.8 22.0 H (14-18) Glucose 123 H 114 H (70-99) mg/dL Calcium 8.8 8.8 (8.5-10.1) mg/dL Magnesium 2.2 (1.8-2.4) mg/dL Total Bilirubin 0.5 0.5 (0.2-1.0) mg/dL AST 35 28 (15-37) U/L ALT 61 55 (16-63) U/L Alkaline Phosphatase 64 64 (46-116) U/L Troponin I 0.066 H* (0.00-0.056) ng/mL Total Protein 6.7 6.7 (6.4-8.2) g/dl Albumin 3.2 L 3.2 L (3.4-5.0) g/dl Globulin 3.5 3.5 gm/dL Albumin/Globulin Ratio 0.9 L 0.9 L (1-2) Med Orders - Current: Current Medications Acetaminophen (Acetaminophen 325 Mg Tab) 650 mg PO Q4H PRN PRN Reason: Pain (Mild 1-3)/fever Albuterol (Albuterol 0.083% 2.5 Mg/3 Ml Neb Soln) 2.5 mg NEB Q2H PRN PRN Reason: Shortness Of Breath/wheezing Albuterol/Ipratropium (Albuterol/Ipratropium 3.0-0.5 Mg/3 Ml Neb Soln) 3 ml NEB Q4H PRN PRN Reason: Shortness Of Breath/wheezing Famotidine (Famotidine 10 Mg Tab) 10 mg PO DAILY [facility] Last Admin: 06/27/21 07:28 Dose: 10 mg Documented by: Ondansetron HCl (Ondansetron 4 Mg/2 Ml Sdv) 4 mg IV Q6H PRN PRN Reason: Nausea/Vomiting Oxycodone HCl (Oxycodone 5 Mg Tab) 5 mg PO Q4H PRN PRN Reason: Pain (moderate 4-6) Rivaroxaban (Rivaroxaban 15 Mg Tab) 15 mg PO BIDAC [facility] Last Admin: 06/27/21 07:27 Dose: 15 mg Documented by: Sodium Chloride (Sodium Chloride 0.9% 10 Ml Syringe) 10 ml FLUSH ASDIRECTED PRN PRN Reason: Keep Vein Open Last Admin: 06/24/21 09:48 Dose: 10 ml Documented by: Temazepam (Temazepam 15 Mg Cap) 15 mg PO BEDTIME PRN PRN Reason: Sleep Discontinued Medications Heparin Sodium (Porcine) (Heparin Sodium 5,000 Units/Ml Vial) 7,000 units IVPUSH .BOLUS ONE Stop: 06/24/21 12:15 Last Admin: 06/24/21 12:30 Dose: 7,000 units Documented by: Sodium Chloride (Normal Saline) 100 mls @ 75 mls/hr IV ASDIRECTED [facility]YDE Last Admin: 06/24/21 11:20 Dose: 75 mls/hr Documented by: Heparin Sodium/Dextrose (Heparin 25,000 Units In D5w 500 Ml) 25,000 units in 500 mls @ 33.312 mls/hr IV TITRATE [facility]; Protocol Stop: 06/26/21 16:00 Last Admin: 06/26/21 11:05 Dose: 18 units/kg/hr, 33.312 mls/hr Documented by: Iopamidol (Iopamidol 755 Mg/Ml 100 Ml Bottle) 100 ml IVPUSH ONETIME ONE Stop: 06/24/21 10:59 Last Admin: 06/24/21 11:19 Dose: 100 ml Documented by: Magnesium Hydroxide (Magnesium Hydroxide 400 Mg/5 Ml Susp 30 Ml Cup) 30 ml PO ONETIME ONE Stop: 06/26/21 09:01 Last Admin: 06/26/21 08:36 Dose: 30 ml Documented by: Sodium Chloride (Sodium Chloride 0.9% 10 Ml Syringe) 10 ml FLUSH ONETIME PRN PRN Reason: IV FLUSH Last Admin: 06/24/21 11:20 Dose: 10 ml Documented by: - Exam Quality Assessment: Reports: DVT Prophylaxis. Denies: Supplemental Oxygen, Urine Catheter General: Reports: Alert, Oriented, Cooperative, No Acute Distress HEENT: Reports: Pupils Equal, Pupils Reactive, Mucous Membr. Moist/[place] Neck: Reports: Supple, Trachea Midline Lungs: Reports: Clear to Auscultation, Normal Respiratory Effort Cardiovascular: Reports: Regular Rate, Regular Rhythm GI/Abdominal Exam: Normal Bowel Sounds, Soft, Non-Tender, No Distention (Male) Exam: Deferred Rectal (Males) Exam: Deferred Back Exam: Reports: Normal Inspection, Full Range of Motion Extremities: Normal Inspection, Normal Range of Motion, Non-Tender, No Pedal Edema, Normal Capillary Refill Skin: Reports: Warm, Dry, Intact Neurological: Reports: No New Focal Deficit Psy/Mental Status: Reports: Alert, Normal Affect, Normal Mood <Reinaldo Boyd Jr - Last Filed: 06/27/21 18:49> Discharge Summary - Referral to Home Health Primary Care Physician: Fletcher Espana MD - Discharge Summary/Plan Comment Discharge Summary/Plan Comment: Case discussed in full. Agree with evaluation, assessment and plan. -Ousmane Ellis Jr., DO - Patient Data Vitals - Most Recent: Last Vital Signs Temp 97.7 F 06/27/21 07:26 Pulse 67 06/27/21 07:26 Resp 16 06/27/21 07:26 BP 141/73 H 06/27/21 07:26 Pulse Ox 92 L 06/27/21 07:26 I&O - Last 24 hours: Intake & Output 06/27/21 06/27/21 06/27/21 06:59 14:59 22:59 Intake Total 240 Balance 240 Lab Results - Last 24 hrs: Laboratory Results - last 24 hr 06/27/21 06/27/21 Range/Units 05:58 05:58 WBC 6.03 (4.23-9.07) K/mm3 RBC 4.58 L (4.63-6.08) M/mm3 Hgb 13.9 (13.7-17.5) gm/dl Hct 42.4 (40.1-51.0) % MCV 92.6 H (79.0-92.2) fl MCH 30.3 (25.7-32.2) pg MCHC 32.8 (32.2-35.5) g/dl RDW Std Deviation 43.7 (35.1-43.9) fL Plt Count 231 (163-337) K/mm3 MPV 9.0 L (9.4-12.3) fl Neut % (Auto) 71.4 H (34.0-67.9) % Lymph % (Auto) 16.3 L (21.8-53.1) % [place] % (Auto) 9.3 (5.3-12.2) % Eos % (Auto) 1.5 (0.8-7.0) Baso % (Auto) 1.0 (0.1-1.2) % Neut # (Auto) 4.31 (1.78-5.38) K/mm3 Lymph # (Auto) 0.98 L (1.32-3.57) K/mm3 [place] # (Auto) 0.56 (0.30-0.82) K/mm3 Eos # (Auto) 0.09 (0.04-0.54) K/mm3 Baso # (Auto) 0.06 (0.01-0.08) K/mm3 Sodium 141 (136-145) mEq/L Potassium 4.5 (3.5-5.1) mEq/L Chloride 105 (98-107) mEq/L Carbon Dioxide 25 (21-32) mEq/L Anion Gap 15.5 H (5-15) BUN 22 H (7-18) mg/dL Creatinine 1.0 (0.7-1.3) mg/dL Est Cr Clr Drug Dosing 71.99 mL/min Estimated GFR (MDRD) > 60 (>60) mL/min BUN/Creatinine Ratio 22.0 H (14-18) Glucose 114 H (70-99) mg/dL Calcium 8.8 (8.5-10.1) mg/dL Total Bilirubin 0.5 (0.2-1.0) mg/dL AST 28 (15-37) U/L ALT 55 (16-63) U/L Alkaline Phosphatase 64 (46-116) U/L Total Protein 6.7 (6.4-8.2) g/dl Albumin 3.2 L (3.4-5.0) g/dl Globulin 3.5 gm/dL Albumin/Globulin Ratio 0.9 L (1-2) Med Orders - Current: Current Medications Discontinued Medications Acetaminophen (Acetaminophen 325 Mg Tab) 650 mg PO Q4H PRN PRN Reason: Pain (Mild 1-3)/fever Albuterol (Albuterol 0.083% 2.5 Mg/3 Ml Neb Soln) 2.5 mg NEB Q2H PRN PRN Reason: Shortness Of Breath/wheezing Albuterol/Ipratropium (Albuterol/Ipratropium 3.0-0.5 Mg/3 Ml Neb Soln) 3 ml NEB Q4H PRN PRN Reason: Shortness Of Breath/wheezing Famotidine (Famotidine 10 Mg Tab) 10 mg PO DAILY [facility] Last Admin: 06/27/21 07:28 Dose: 10 mg Documented by: Heparin Sodium (Porcine) (Heparin Sodium 5,000 Units/Ml Vial) 7,000 units IVPUSH .BOLUS ONE Stop: 06/24/21 12:15 Last Admin: 06/24/21 12:30 Dose: 7,000 units Documented by: Sodium Chloride (Normal Saline) 100 mls @ 75 mls/hr IV ASDIRECTED AYDE Last Admin: 06/24/21 11:20 Dose: 75 mls/hr Documented by: Heparin Sodium/Dextrose (Heparin 25,000 Units In D5w 500 Ml) 25,000 units in 500 mls @ 33.312 mls/hr IV TITRATE [facility]; Protocol Stop: 06/26/21 16:00 Last Admin: 06/26/21 11:05 Dose: 18 units/kg/hr, 33.312 mls/hr Documented by: Iopamidol (Iopamidol 755 Mg/Ml 100 Ml Bottle) 100 ml IVPUSH ONETIME ONE Stop: 06/24/21 10:59 Last Admin: 06/24/21 11:19 Dose: 100 ml Documented by: Magnesium Hydroxide (Magnesium Hydroxide 400 Mg/5 Ml Susp 30 Ml Cup) 30 ml PO ONETIME ONE Stop: 06/26/21 09:01 Last Admin: 06/26/21 08:36 Dose: 30 ml Documented by: Ondansetron HCl (Ondansetron 4 Mg/2 Ml Sdv) 4 mg IV Q6H PRN PRN Reason: Nausea/Vomiting Oxycodone HCl (Oxycodone 5 Mg Tab) 5 mg PO Q4H PRN PRN Reason: Pain (moderate 4-6) Rivaroxaban (Rivaroxaban 15 Mg Tab) 15 mg PO BIDAC [facility] Last Admin: 06/27/21 07:27 Dose: 15 mg Documented by: Sodium Chloride (Sodium Chloride 0.9% 10 Ml Syringe) 10 ml FLUSH ASDIRECTED PRN PRN Reason: Keep Vein Open Last Admin: 06/24/21 09:48 Dose: 10 ml Documented by: Sodium Chloride (Sodium Chloride 0.9% 10 Ml Syringe) 10 ml FLUSH ONETIME PRN PRN Reason: IV FLUSH Last Admin: 06/24/21 11:20 Dose: 10 ml Documented by: Temazepam (Temazepam 15 Mg Cap) 15 mg PO BEDTIME PRN PRN Reason: Sleep
== END 2021-06-27 10:00 | disposition home or self-care (01) | DRG 176 ==
LOC: JD.ED 08:39 → JD.MS 17:10 → JD.OB 06-26 20:38 → JD.MS 06-27 09:55 → UNDODISIN 06-27 10:00
PROVIDERS: ADMIT Family Medicine; ATTEND Family Medicine
DX: I26.99 Other pulmonary embolism without acute cor pulmonale (principal); C90.30 Solitary plasmacytoma not having achieved remission; G47.33 Obstructive sleep apnea (adult) (pediatric); H54.7 Unspecified visual loss; K21.9 Gastro-esophageal reflux disease without esophagitis; E53.8 Deficiency of other specified B group vitamins; E61.1 Iron deficiency; I10 Essential (primary) hypertension; Z20.822 Contact with and (suspected) exposure to COVID-19; Z99.81 Dependence on supplemental oxygen; Z79.899 Other long term (current) drug therapy; Z79.01 Long term (current) use of anticoagulants; Z87.891 Personal history of nicotine dependence
CPT/HCPCS: 36415; 36600; 71045; 71045-26; 71275; 71275-26; 80053; 82803; 83735; 84484; 85025; 85379; 85730; 86140; 93005; 93010; 93306; 94760; 96374; 99223; 99232; 99233; 99239; 99285; 99285-25; A9270-GY; J1644; Q9967; U0002

== ENCOUNTER 2024-09-20 05:59 | Emergency (ER) | payer MEDICARE, OTHER | END 2024-09-20 07:17 | disposition home or self-care (01) | LOC: JD.ED 05:59 | DX: M25.511 Pain in right shoulder (principal); I10 Essential (primary) hypertension; Z79.899 Other long term (current) drug therapy; Z79.01 Long term (current) use of anticoagulants | CPT/HCPCS: 73030-26-RT; 73030-RT; 99283 ==

== ENCOUNTER 2025-04-09 16:06 | Emergency (ER) | payer MEDICARE, OTHER ==
[2025-04-09] MEDS: Diphtheria,Pertussis(Acell),Tetanus Vaccine 0.5 ML Syringe IM ONE (17:54)
[2025-04-09] MEDS: Lidocaine 1% with EPINEPHrine 1:100,000 20 ML MDV INJECT ONE (17:56)
== END 2025-04-09 18:15 | disposition home or self-care (01) ==
LOC: JD.ED 16:06
DX: S51.812A Laceration without foreign body of left forearm, initial encounter (principal); S40.011A Contusion of right shoulder, initial encounter; I10 Essential (primary) hypertension; K21.9 Gastro-esophageal reflux disease without esophagitis; Z79.899 Other long term (current) drug therapy; Z79.01 Long term (current) use of anticoagulants; Z23 Encounter for immunization; W11.XXXA Fall on and from ladder, initial encounter
CPT/HCPCS: 12004; 73020; 90471; 90715; 96374; 99284; J0696; J2003; J2004

== ENCOUNTER 2025-04-10 13:59 | Emergency (ER) | payer MEDICARE, OTHER | END 2025-04-10 14:50 | disposition home or self-care (01) | LOC: JD.ED 13:59 | DX: S51.812D Laceration without foreign body of left forearm, subsequent encounter (principal); I10 Essential (primary) hypertension; Z79.01 Long term (current) use of anticoagulants; Z94.81 Bone marrow transplant status; Z79.899 Other long term (current) drug therapy; X58.XXXD Exposure to other specified factors, subsequent encounter | CPT/HCPCS: 99282 ==